=== PATIENT | female | born 1940 | race Caucasian/White ===

== ENCOUNTER → 2016-07-25 | Outpatient (CLI) | payer MEDICARE, BC | END | disposition home or self-care (01) | LOC: LABWHC1 10:30 | PROVIDERS: ATTEND Family Medicine | DX: R53.1 Weakness (principal); M79.602 Pain in left arm | CPT/HCPCS: 36415; 82565; 84520 ==

== ENCOUNTER → 2016-07-26 | Outpatient (CLI) | payer MEDICARE, BC ==
--- NOTE | 2016-07-26 10:33 | MR ---
EXAMINATION TYPE: MR Cspine/Tspine wo/w con DATE OF EXAM: 07/26/2016 8:44 AM COMPARISON: Cervical spine 10/02/2011 and thoracic spine dated 01/30/2012 HISTORY: 75-year-old female with back pain, weakness in arms and legs, left arm pain. TECHNIQUE: Multiplanar, multisequence images of the cervical spine followed by the thoracic spine bef ore and after administration of 17 mL intravenous MultiHance gadolinium contrast. FINDINGS: CERVICAL SPINE: No craniocervical junction abnormality, predental space widening, or prevertebral soft tissue swellin g. There are postsurgical changes of C3-C5 ACDF. Reversal of the normal cervical lordosis along the lowe r cervical spine. Alignment is maintained. Mild heterogeneous marrow signal without suspicious bone marrow replacement. Moderate multilevel degenerative disc disease characterized by disc desiccation and disc interspace n arrowing. The degree of disc space loss has regressed from 10/02/2011 especially at C2-C3. Ligamentum flavum thickening at C2-C3 and C3-C4 and continued prominent disc osteophyte complex at C7 -T1. Scattered facet degenerative changes also present. At C2-C3, there is worsening, now moderate spinal canal stenosis with disc osteophyte complex and lig amentum flavum thickening. Changes result in mild left and moderate right neuroforaminal stenosis. Th ere is prominent ventral indentation and dorsal abutment of the cervical cord. At C3-C4, there is posterior osteophytic ridging at the fused level with ligamentum flavum thickening and worsening moderate spinal canal stenosis. There is continued flattening of the ventral cord and prominent abutment of the dorsal cord with mild volume loss and some increased T2 signal especially w ithin the left hemicord. However, there is increased signal also appears to have been present on prio r exam and is suspected to relate to chronic compressive myelomalacia. Changes result in moderate blanca ateral neuroforaminal stenoses. At C4-C5, there is uncovertebral joint and facet spurring with moderate to severe right and moderate left neuroforaminal stenosis but no significant spinal canal stenosis. At C5-C6, there is uncovertebral joint and facet degenerative change without significant spinal canal or neuroforaminal stenosis. At C6-C7, there is reversal of the normal cervical lordosis causing mild impression on the ventral th ecal sac. There is also bilateral facet and uncovertebral joint degenerative change resulting in mode rate to severe left and [id number] right neuroforaminal stenosis. No significant spinal canal s tenosis. At C7-T1, there is disc osteophyte complex with facet and uncovertebral joint degenerative change. Ch anges result in moderate to severe left neuroforaminal stenosis with a prominent left lateral disc os teophyte complex. There is slight worsening mild spinal canal stenosis with abutment and slight ariana ening of the ventral cord. At C7-T1, there is facet degenerative change with moderate right neuroforaminal stenosis. No spinal c anal stenosis. No suspicious enhancement within the spinal canal. Multiple cystic nodules within the thyroid gland. Additional nodules are present measuring up to 2.0 cm in the right lobe versus 1.8 cm, previously. These can be assessed in more detail with thyroid ult rasound if indicated. THORACIC SPINE: There is straightening of the normal thoracic kyphosis with multilevel mild degenerative disc disease characterized by disc desiccation. Mild disc height loss at T8-T9. Multiple levels of posterior disc bulges. Ligamentum flavum thickening throughout. Also noted. Scattered facet arthropathy is also pre sent. On the left, changes of the moderate neuroforaminal stenosis at T9-T10 and T10-T11 and very minimal m ild additional levels. On the right, changes results in mild to moderate neuroforaminal stenosis at T8-T9 and T10-T11 and mo derate at T9-T10. There is no significant spinal canal stenosis. Minimal superior endplate depression of T5 is unchanged. Chronic-appearing anterior wedging of T12 th ough new from 2012. Mild heterogeneous marrow signal without suspicious bone marrow placement. Some Modic type II endplat e change is present anteriorly from T7 through T11 levels. New in the interval is posterior fusion hardware from T12 and down below the field of view. There is severe angulated kyphotic deformity at T11-T12 also new. The left T11 transpedicular screw appears to project superiorly into the T11-T12 disc interspace and T11 inferior endplate. The focal kyphosis is accompanied by a right paracentral disc protrusion at T11-T12 causing mild spinal canal stenosis and flattening the cord ventrally against the angulation deformity. No clear cord signal abnormality is identified. An ovoid 2.0 cm T2 hyperintense lesion in the anterior mid right kidney appears new from 2012. This e ither does not enhance or have some low-level internal enhancement. Moderate-sized hiatal hernia. Referring to series 1301 and 1601 image 20, there is focal subpleural opacity in the posterior right base. COMBINED IMPRESSION: CERVICAL SPINE: 1. Postsurgical changes of C3-C5 ACDF with interval worsening in the disc/endplate degenerative wren e and ligamentum flavum thickening above the fusion in the upper cervical spine. Multilevel facet and uncovertebral joint arthropathy remains. 2. Changes result in worsening moderate spinal canal stenosis at C2-C3 with abutment of both the dors al and ventral cord and slight ventral cord flattening. 3. Moderate spinal canal stenosis at the fused C3-C4 level is also worsened due to new ligamentum fla vum thickening. There is continued flattening of the ventral cord and now abutment of the dorsal cord with similar chronic compressive myelomalacia especially in the left hemicord. 4. Disc osteophyte complex at C7-T1 with slight worsening mild spinal canal stenosis. There is slight flattening of the ventral cord without lety cord compression. 5. Variable moderate to severe neuroforaminal stenoses as outlined above. 6. Bilateral thyroid nodules some of which appear larger from 2012. Dedicated thyroid ultrasound as c linically indicated. THORACIC SPINE: 1. New posterior fusion changes from T12 extending down beyond the [id number] and new angulated ky photic deformity centered at T11-T12. There is a right paracentral disc protrusion at this level caus ing mild spinal canal stenosis. The lower thoracic cord is flattened ventrally as it drapes over the angulation deformity. 2. The left T12 transpedicular screw extends into the T11-T12 disc interspace and into the T11 inferi or endplate. 3. Mild multilevel degenerative disc disease with small posterior disc bulges. Additional scattered f acet arthropathy and ligamentum flavum thickening. 4. Changes result in variable mild neuroforaminal stenoses throughout, moderate at T9-T10 and T10-T11 . 5. Recommend renal ultrasound to evaluate the new 2.0 cm hyperintense lesion in the right mid kidney. This may represent a cyst. 6. Focal subpleural opacity posterior right base. Contrast enhanced CT chest can further evaluate for possible consolidation or mass.
== END | disposition home or self-care (01) ==
LOC: RADMRIMAIN 07:18
PROVIDERS: ATTEND Family Medicine
DX: M48.02 Spinal stenosis, cervical region (principal); M99.71 Connective tissue and disc stenosis of intervertebral foramina of cervical region; M46.92 Unspecified inflammatory spondylopathy, cervical region; M48.04 Spinal stenosis, thoracic region; M99.72 Connective tissue and disc stenosis of intervertebral foramina of thoracic region; M51.24 Other intervertebral disc displacement, thoracic region; M51.34 Other intervertebral disc degeneration, thoracic region; M46.94 Unspecified inflammatory spondylopathy, thoracic region; Z98.1 Arthrodesis status
CPT/HCPCS: 72156; 72157; A9577

== ENCOUNTER → 2016-07-28 | Outpatient (CLI) | payer MEDICARE, BC ==
[2016-07-25 16:29] LABS: Blood Urea Nitrogen 26 mg/dL (7-17); Non-African American GFR(MDRD) >60 (>60 ml/min/1.73 sqM)
--- NOTE | 2016-07-28 16:53 | MR ---
EXAMINATION TYPE: MR lumbar spine wo/w con DATE OF EXAM: 07/28/2016 3:46 PM COMPARISON: 03/28/2011 HISTORY: 75-year-old female pain, weakness in legs Technique: Multiplanar, multisequence images of the lumbar spine were obtained before and after admin istration of 17 mL intravenous MultiHance gadolinium contrast. FINDINGS: There are extensive postsurgical changes extending from T12 down through S2 levels. As noted on recen t thoracic spine exam, the left T12 transpedicular screw extends up into the T11-T12 disc interspace and T11 inferior endplate. There is a marked kyphotic deformity at T11-T12, new from 03/28/2011 and pe rsistent grade 2 anterolisthesis at L2-L4 with a interbody ankylosis. There appears to be relatively similar grade 1 retrolisthesis at L4-L5 and postlaminectomy changes throughout most of the lumbar spi ne. As noted on prior thoracic spine exam, there is a right paracentral disc protrusion at T11-T12 and al jill with the angulation deformity, mild spinal canal stenosis with flattening of the cord as it drape s over the angulation deformity. At the fused L3-L4 level, there is the grade 2 retrolisthesis with a dorsal decompression of the spin al canal. No obvious spinal canal stenosis is seen aside from the T11-T12 level. Assessment of the neuroforamina is essentially nondiagnostic due to the degree of extensive metal art ifact. Numerous T2 hyperintense lesions within the kidneys. Renal ultrasound can further evaluate the 1.9 cm anterior right kidney ovoid lesion. IMPRESSION: 1. Extensive metal hardware artifact from T11 through S2 posterior lumbar fusion. Kyphotic angulation deformity at T11-T12 with canal narrowing and flattening of the cord as it courses over the angulati on deformity was described on the recent thoracic spine MRI. The angulation deformity and surgical padilla rdware is new from 2010. 2. Grade 2 retrolisthesis at L3-L4 with bony interbody ankylosis which was present previously. There is dorsal decompression of the spinal canal at this level preventing any canal compromise here. 3. Aside from the T11-T12 level, no significant spinal canal stenosis is identified with certainty al lowing for the extensive metal hardware artifact. 4. Assessment of the neuroforamina is essentially nondiagnostic due to the extensive artifact.
== END | disposition home or self-care (01) ==
LOC: LABWHC1 07-25 15:52
PROVIDERS: ATTEND Family Medicine
DX: Z98.1 Arthrodesis status (principal); M43.16 Spondylolisthesis, lumbar region
CPT/HCPCS: 82565; 84520; 72158; 36415; A9577

== ENCOUNTER → 2016-08-08 | Outpatient (CLI) | payer MEDICARE, BC ==
[2016-08-08 11:11] LABS: Blood Urea Nitrogen 33 mg/dL (7-17); Non-African American GFR(MDRD) >60 (>60 ml/min/1.73 sqM)
--- NOTE | 2016-08-08 11:53 | CT ---
EXAMINATION TYPE: CT chest w con DATE OF EXAM: 08/08/2016 11:44 AM COMPARISON: 03/11/2013 HISTORY: Abnormal findings of lung field CT DLP: 720 mGycm Automated exposure control for dose reduction was used. CONTRAST: CT scan of the chest is performed with IV Contrast, patient injected with 100 ml mL of Omnipaque 300. FINDINGS: LUNGS: There is no consolidative pneumonia or pleural effusion. There is a nodular appearing density along the posterior segment of the right lower lobe measuring 8 mm. Adjacent subpleural 5 mm nodule s een which appear increased in size from previous exam. MEDIASTINUM: There are no greater than 1 cm hilar or mediastinal lymph nodes. No pericardial effusi on is seen. Heart is enlarged. Subcarinal calcified lymph nodes are seen. OTHER: Stable thyroid nodules with thyroid gland extending substernally. 6 mm nodule right breast fo r which mammogram is recommended. Degenerative change of the spine and previous surgery noted. Spleni c granuloma noted. There is a prominent epicardial fat. Hiatal hernia noted. IMPRESSION: 1. No consolidative pneumonia. There is a nodule involving the right lower lobe now measuring 8 mm wh ich is increased in size from the previous exam where it measured 2 mm. Consider follow-up PET scan. 2. 6 mm right breast nodule recommend follow-up mammogram.
== END | disposition home or self-care (01) ==
LOC: RADCTMAIN 10:27
PROVIDERS: ATTEND Family Medicine
DX: R91.8 Other nonspecific abnormal finding of lung field (principal)
CPT/HCPCS: 82565; 84520; 71260; 36415; Q9967

== ENCOUNTER → 2016-08-25 | Outpatient (CLI) | payer MEDICARE, BC ==
--- NOTE | 2016-08-26 07:24 | MM ---
Reason for exam: additional evaluation requested from prior study. Last mammogram was performed 1 year and 5 months ago. History: Patient is postmenopausal. Family history of breast cancer in 2 paternal aunts at age 30. 2 excisional biopsies of the right breast, 1989. Physical Findings: Nurse did not find any significant physical abnormalities on exam. MG 3D Diag Mammo W/Cad JAMIL Bilateral CC and MLO view(s) were taken. LM view(s) were taken of the right breast. Prior study comparison: March 28, 2015, bilateral MG screening mammo w CAD. November 16, 2013, bilateral MG screening mammo w CAD. There are scattered fibroglandular densities. No significant new findings when compared with previous films. These results were verbally communicated with the patient and result sheet given to the patient on 08/25/16. ASSESSMENT: Benign, BI-RAD 2 RECOMMENDATION: Routine screening mammogram of both breasts in 1 year.
== END | disposition home or self-care (01) ==
LOC: RADMAMWWP 15:35
PROVIDERS: ATTEND Family Medicine
DX: N63 Unspecified lump in breast (principal)
CPT/HCPCS: G0204; G0279

== ENCOUNTER → 2016-10-22 | Outpatient (CLI) | payer MEDICARE, BC ==
[2016-10-22 11:12] LABS: Blood Urea Nitrogen 43 mg/dL (7-17); Non-African American GFR(MDRD) 60 (>60 ml/min/1.73 sqM)
--- NOTE | 2016-10-22 11:57 | CT ---
EXAMINATION TYPE: CT chest w con DATE OF EXAM: 10/22/2016 11:42 AM COMPARISON: Prior chest CT August 08, 2016. Older chest CT March 11, 2013. HISTORY: Chest nodules. COPD. CT DLP: 461.00 mGycm. Automated Exposure Control for Dose Reduction was Utilized. TECHNIQUE: CT scan of the thorax is performed following with IV Contrast, patient injected with 100 ml mL of Omnipaque 300. FINDINGS: Donor Relations Manager image shows extensive fusion hardware involving the lumbar spine and upper sacrum. LUNGS: There is improved aeration and nodular consolidation posterior lateral right lower lobe with s ome residual ill-defined scarring or infiltrate seen on axial image 37. No new parenchymal nodule or mass is present bilaterally. There is no pleural effusion or pneumothorax seen bilaterally. The tr acheobronchial tree is patent. MEDIASTINUM: There are no greater than 1 cm hilar or mediastinal lymph nodes. Prominent calcified rig ht hilar and subcarinal lymph nodes are redemonstrated. There are prominent but subcentimeter stable pericarinal lymph nodes on axial image 22 redemonstrated. Mild cardiomegaly is again seen with mild t o moderate biatrial dilatation. No pericardial effusion is seen. Multinodular enlarged thyroid gla nd is redemonstrated suggesting multinodular goiter. Some coronary artery calcification is redemonstr ated. OTHER: Prominent focal fibroglandular tissue right breast lateral aspect on axial image 22 is uncha nged from 2013 study and thus presumed benign. Small hiatal hernia is redemonstrated. Numerous calcif ications scattered throughout the spleen are again seen consistent with old granulomatous disease. Marked kyphosis centered at T11-T12 level is redemonstrated. There is postsurgical change beginning a t T12 level with left-sided screw extending into the inferior T11 vertebra. There is marked disc spac e narrowing and spurring at this level with sclerosis and vacuum disc phenomenon. There is vacuum dis c phenomenon at several levels superior to this. There is prominent spurring inferior to this. IMPRESSION: Interval near complete resolution of right lower lobe nodular infiltrate. No new concerni ng parenchymal nodule or mass is present. Other findings as noted above not significantly changed fro m prior exam.
== END | disposition home or self-care (01) ==
LOC: RADCTMAIN 10:20
PROVIDERS: ATTEND Family Medicine
DX: R91.8 Other nonspecific abnormal finding of lung field (principal); J44.9 Chronic obstructive pulmonary disease, unspecified
CPT/HCPCS: 82565; 84520; 71260; 36415; Q9967

== ENCOUNTER → 2017-10-02 | Outpatient (CLI) | payer MEDICARE, BC ==
--- NOTE | 2017-10-02 11:34 | XR ---
EXAMINATION TYPE: XR chest 2V DATE OF EXAM: 10/02/2017 COMPARISON: NONE HISTORY: Shortness of breath TECHNIQUE: Frontal and lateral views of the chest are obtained. FINDINGS: Scattered senescent parenchymal changes noted. Hyperinflation compatible with COPD. No evidence for infiltrate. No evidence for atelectasis. Heart size is stable. Mediastinal structures are stable and grossly unremarkable. No evidence for hilar prominence. Degenerative changes dorsal spine. Postoperative changes with exaggerated kyphosis thoracolumbar spin e. IMPRESSION: 1. No evidence for acute pulmonary disease.
== END | disposition home or self-care (01) ==
LOC: RADXRMAIN 11:01
PROVIDERS: ATTEND Internal Medicine Clinical Cardiac Electrophysiology
DX: J09.X2 Influenza due to identified novel influenza A virus with other respiratory manifestations (principal)
CPT/HCPCS: 71046

== ENCOUNTER 2017-10-05 05:53 | Day surgery (SDC) | payer MEDICARE, BC ==
[2017-09-30 14:37] VITALS: BMI 38.9
[~2017-10-05 05:53] MED LIST: LACTATED RINGERS 1,000 ML IV SCH
[2017-10-05] MEDS ORDERED: SODIUM CHLORIDE 0.9% 1,000 ML IV SCH (06:06)
[2017-10-05 06:47] VITALS: PULSE 68
[2017-10-05] MEDS ORDERED: IV FLUID CONTINUATION 950 ML IV ONE (07:08)
[2017-10-05] MEDS ORDERED: PROPOFOL 10 MG/ML 20 ML VIAL IV ONE (07:10)
[2017-10-05] MEDS ORDERED: LIDOCAINE 1% INJ 10MG/ML (20 ML MDV) ONE (07:10)
[2017-10-05 07:18] LABS: Potassium 3.5 mmol/L (3.5-5.1)
--- NOTE | 2017-10-05 07:37 | P.PCN ---
Preoperative Diagnosis: Procedure Electrical cardioversion for atrial fibrillation Indication for the procedure Symptomatic, rate controlled atrial fibrillation, patient very short of breath with average activities despite adequate rate control of atrial fibrillation. Underlying sick sinus syndrome exacerbated by a combination of metoprolol and verapamil in the past; hence verapamil was discontinued Procedure details Successful electrical cardioversion with a 360 J biphasic shock 1 to sinus rhythm no significant postconversion pauses patient's heart rate ranged from 60- 80 in sinus rhythm Plan Start amiodarone 200 mg by mouth daily Reduce metoprolol to 25 mg twice daily Follow-up Holter monitor in 4 weeks Follow-up with Dr. Sanchez in 6 weeks In the long run reduce amiodarone to 100 mg by mouth daily after about 6 weeks However she is very symptomatic with atrial fibrillation despite good rate control and hence maintenance of sinus rhythm is probably important for her from a symptomatic standpoint Would favor a rhythm control strategy with PVI/cryoablation before permanent pacing/AV node ablation Anesthesia: MAC Disposition: same day
[2017-10-05 10:49] VITALS: BP 142/77; RESP 18
== END 2017-10-05 10:49 | disposition home or self-care (01) ==
LOC: CATHEP 05:53
PROVIDERS: ATTEND Internal Medicine Clinical Cardiac Electrophysiology
DX: I48.1 Persistent atrial fibrillation (principal); Z79.01 Long term (current) use of anticoagulants; I49.5 Sick sinus syndrome; I44.0 Atrioventricular block, first degree; I10 Essential (primary) hypertension; E78.5 Hyperlipidemia, unspecified; M10.9 Gout, unspecified; K27.9 Peptic ulcer, site unspecified, unspecified as acute or chronic, without hemorrhage or perforation; Z79.51 Long term (current) use of inhaled steroids; Z79.899 Other long term (current) drug therapy; Z88.7 Allergy status to serum and vaccine
CPT/HCPCS: 80048; 92960

== ENCOUNTER → 2017-12-03 | Outpatient (CLI) | payer MEDICARE, BC ==
[2017-12-03 11:35] LABS: Calcium 9.4 mg/dL (8.4-10.2); Magnesium 1.6 mg/dL (1.6-2.3); Potassium 3.1 mmol/L (3.5-5.1)
== END | disposition home or self-care (01) ==
LOC: LABWHC1 10:34
PROVIDERS: ATTEND Nurse Practitioner Adult Health
DX: I10 Essential (primary) hypertension (principal)
CPT/HCPCS: 36415; 80048; 83735

== ENCOUNTER → 2018-02-26 | Outpatient (CLI) | payer MEDICARE, BC ==
--- NOTE | 2018-02-28 22:27 | CT ---
EXAMINATION TYPE: CT abdomen pelvis w con DATE OF EXAM: 02/26/2018 HISTORY: Right upper quadrant abdominal pain and nausea. CT DLP: 1141.8mGycm Automated Exposure Control for Dose Reduction was Utilized. CONTRAST: CT scan of the abdomen and pelvis is performed with oral and with IV Contrast, patient injected with 100ml mL of Isovue M300. COMPARISON: Prior CT abdomen and pelvis February 22, 2015. FINDINGS: LUNG BASES: Cardiomegaly is redemonstrated. Dense calcification at level of mitral valve is again see n. LIVER/GB: Cholecystectomy clips are redemonstrated. Occasional punctate calcification throughout the liver is again seen. PANCREAS: There is redemonstration of mild to moderate focal atrophy of the pancreas near uncinate pr ocess, there is new thin-walled 1.0 cm lesion just anterior to IVC axial image 26 favoring a pancreat ic pseudocyst. SPLEEN: There are more numerous calcifications throughout the spleen redemonstrated. Liver and spleen findings are consistent with product of old granulomatous disease. ADRENALS: No significant abnormality is seen. KIDNEYS: There are symmetric cortical medullary uptake and excretion from both kidneys with 2 subcent imeter low dense lesions scattered throughout left kidney and single nonspecific hypodense 1.9 cm les ion right kidney axial image 22. Hounsfield units are greater than simple fluid. Solid lesion at this level cannot be excluded. This is correlated with MRI July 28, 2016 and appear stable favoring si mple cyst. BOWEL: The oral contrast reaches level of the hepatic flexure. There is no suspicious small or large bowel dilatation. There are diverticula in the sigmoid colon without CT evidence for acute diverticu litis. UTERUS/ADNEXA: Uterus is surgically absent or markedly atrophic. Scattered pelvic phlebolith are pres ent. LYMPH NODES: No greater than 1cm abdominal or pelvic lymph nodes are appreciated. OSSEOUS STRUCTURES: Extensive surgical change to the lumbar spine is redemonstrated. Demineralization is present. There is multilevel disc space narrowing and ossific fusion. There is moderate height lo ss anteriorly involving the T11 and T12 vertebra at peak of kyphosis redemonstrated. There is stable retrolisthesis of L2 on L3 with ossific fusion. Moderate joint space loss both hips is redemonstrated . OTHER: No significant additional abnormality is seen. IMPRESSION: No significant acute finding is seen to account for patient's clinical symptoms of right upper quadrant pain. Possible new 1.0 cm pancreatic pseudocyst near level of uncinate process.
== END | disposition home or self-care (01) ==
LOC: RADCTMAIN 15:35
PROVIDERS: ATTEND Family Medicine
DX: R10.11 Right upper quadrant pain (principal)
CPT/HCPCS: 82565; 84520; 74177; 36415; Q9967

== ENCOUNTER → 2018-06-08 | Outpatient (CLI) | payer MEDICARE, BC ==
--- NOTE | 2018-06-08 17:38 | CT ---
EXAMINATION: CT brain wo con DATE AND TIME: 06/08/2018 5:00 PM CLINICAL INDICATION: R42 dizziness R51 headaches JUARES x3 days TECHNIQUE: Standard departmental protocol. COMPARISON: None. FINDINGS: The calvarium is intact. There is no intracranial hemorrhage. There is no intracranial mass or mass effect. No definite new intra-axial or extra-axial attenuation defect. The paranasal sinuses, middle ear cavities, and mastoid sinus air cells are clear. The orbits are unremarkable. IMPRESSION: NO ACUTE PROCESS.
== END | disposition home or self-care (01) ==
LOC: RADCTMAIN 16:38
PROVIDERS: ATTEND Family Medicine
DX: R42 Dizziness and giddiness (principal); R51 Headache
CPT/HCPCS: 70450

== ENCOUNTER 2019-02-21 15:18 | Inpatient (IN) | payer MEDICARE, BC ==
--- NOTE | 2019-02-21 18:06 | ED ---
Weakness HPI - General Source: patient, family Mode of arrival: wheelchair Limitations: no limitations <Anupama Palomino - Last Filed: 02/24/19 00:52> <Bharat Cuellar - Last Filed: 02/28/19 04:14> - General Chief complaint: Weakness Stated complaint: trouble walking Time Seen by Provider: 02/21/19 17:13 - History of Present Illness Initial comments: Patient is a 78-year-old female presenting to emergency department complaints of weakness 1-2 weeks. Patient states she feels like her legs are just not able to keep up with that she wants to do. Patient admits to traveling by vehicle to [place] 2 weeks ago when her symptoms started. Patient returned approximately 4 days ago and symptoms have just progressed. Patient admits to having bilateral lower leg edema. Patient denies any fever, chills, shortness of breath, nausea, vomiting, diarrhea. No other complaints at this time. Patient has past medical history of DM, COPD, hypertension, hyperlipidemia. (Anupama Palomino) - Related Data Home Medications Medication Instructions Recorded Confirmed DULoxetine HCL [Cymbalta] 60 mg PO DAILY 02/21/15 02/21/19 Ergocalciferol (Vitamin D2) 50,000 unit PO TU 02/21/15 02/21/19 [Vitamin D2] Magnesium Oxide [Mag-Ox] 400 mg PO 02/21/15 02/21/19 Mirabegron [Myrbetriq] 50 mg PO DAILY PRN 02/21/15 02/21/19 Montelukast [Singulair] 10 mg PO DAILY 02/21/15 02/21/19 Omeprazole 40 mg PO DAILY 02/21/15 02/21/19 Apixaban [Eliquis] 5 mg PO BID 09/30/17 02/21/19 Docusate [Colace] 100 mg PO DAILY 09/30/17 02/21/19 Ranitidine HCl [Zantac] 150 mg PO HS 09/30/17 02/21/19 Albuterol Inhaler [Ventolin Hfa 2 puff INHALATION RT-Q6H PRN 02/21/19 02/21/19 Inhaler] Allopurinol [Zyloprim] 300 mg PO HS 02/21/19 02/21/19 Colon Health 1 tab PO DAILY 02/21/19 02/21/19 Cyanocobalamin (Vitamin B-12) 1,000 mcg PO DAILY 02/21/19 02/21/19 [Vitamin B-12] Furosemide [Lasix] 40 mg PO DAILY 02/21/19 02/21/19 Loratadine [Claritin] 10 mg PO DAILY 02/21/19 02/21/19 metFORMIN HCL [Glucophage] 500 mg PO DAILY 02/21/19 02/21/19 predniSONE 10 mg PO TID 02/21/19 02/21/19 traMADol HCL [Ultram] 50 mg PO DAILY PRN 02/21/19 02/21/19 traZODone HCL 50 mg PO HS 02/21/19 02/21/19 Previous Rx's Medication Instructions Recorded Amiodarone [Cordarone] 200 mg PO DAILY #90 tab 10/05/17 Allergies Allergy/AdvReac Type Severity Reaction Status Date / Time adhesive AdvReac blisters Verified 02/21/19 17:09 tetanus toxoid, adsorbed AdvReac RED SKIN Verified 02/21/19 17:09 AND SWELLING AT SITE Review of Systems ROS Other: All systems not noted in ROS Statement are negative. <Anupama Palomino - Last Filed: 02/24/19 00:52> ROS Other: All systems not noted in ROS Statement are negative. <Bharat Cuellar - Last Filed: 02/28/19 04:14> ROS Statement: Those systems with pertinent positive or pertinent negative responses have been documented in the HPI. Past Medical History Past Medical History: Asthma, COPD, GERD/Reflux, Hyperlipidemia, Hypertension, Osteoarthritis (OA) Additional Past Medical History / Comment(s): HX KIDNEY STONES, MIGRAINE HEADACHES,URINARY INCONTINENCE See Dr Montanez's H&P for cardiac history. lg cell arthritis- steriod treatment History of Any Multi-Drug Resistant Organisms: None Reported Past Surgical History: Appendectomy, Back Surgery, Bladder Surgery, Breast Surgery, Cholecystectomy, Hysterectomy, Orthopedic Surgery Additional Past Surgical History / Comment(s): RT BREAST BX, NECK SURGERY X2, HEMMORRHIDECTOMY,. COLONSCOPY. BILAT. CATARACTS. BLADDER SUSPENSION. BILAT CTR. 10 vertebrae "surgical placed" Past Anesthesia/Blood Transfusion Reactions: No Reported Reaction Past Psychological History: Anxiety, Depression Smoking Status: Never smoker Past Alcohol Use History: None Reported Past Drug Use History: None Reported - Past Family History Sister(s) Family Medical History: Cancer <Nicolle Palominonimaritza Garza - Last Filed: 02/24/19 00:52> General Exam Limitations: no limitations <GeorgetteAnupama Kayla - Last Filed: 02/24/19 00:52> - General Exam Comments Initial Comments: GENERAL: Well-appearing, well-nourished and in no acute distress. HEAD: Atraumatic, normocephalic. EYES: Pupils equal round and reactive to light, extraocular movements intact, sclera anicteric, conjunctiva are normal. ENT: TMs normal, nares patent, oropharynx clear without exudates. Moist mucous membranes. NECK: Normal range of motion, supple without lymphadenopathy or JVD. LUNGS: Breath sounds clear to auscultation bilaterally and equal. No wheezes rales or rhonchi. HEART: Regular rate and rhythm without murmurs, rubs or gallops. ABDOMEN: Soft, nontender, normoactive bowel sounds. No guarding, no rebound. No masses appreciated. : Deferred EXTREMITIES: Normal range of motion. No clubbing or cyanosis. Patient has 1+ pitting edema bilateral lower extremities. No pain to palpation of the calfs, no erythema to lower extremity. NEUROLOGICAL: Cranial nerves II through XII grossly intact. Normal speech, normal gait. PSYCH: Normal mood, normal affect. SKIN: Warm, Dry, normal turgor, no rashes or lesions noted. (Anupama Palomino) Course Vital Signs 02/21/19 02/21/19 02/21/19 15:23 21:50 23:07 Temperature 97.9 F Pulse Rate 96 86 85 Respiratory 18 16 16 Rate Blood Pressure 143/82 122/73 134/73 O2 Sat by Pulse 96 96 96 Oximetry EKG Findings - EKG Comments: EKG Findings:: Ventricular rate 89, IA interval 188, QTC 472. Sinus rhythm, occasional PVC. No acute ST segment changes. No prior EKGs to compare. <Anupama Palomino - Last Filed: 02/24/19 00:52> Medical Decision Making - Lab Data Result diagrams: 02/23/19 08:06 02/23/19 08:06 <Anupama Palomino - Last Filed: 02/24/19 00:52> - Lab Data Result diagrams: 02/25/19 07:05 02/25/19 07:05 <Bharat Cuellar - Last Filed: 02/28/19 04:14> - Medical Decision Making Patient is a 78-year-old female with complaints of weakness and lower extremity edema 1-2 weeks. Patient does admit to traveling by vehicle to [place] 2 weeks ago and returned approximately 4 days ago. Patient has history of DM, COPD, hypertension. Upon arrival, vital signs are stable, afebrile. Exam is unremarkable except for mild, 1+ edema around bilateral ankles. No pain with calf tenderness, no erythema lower extremities. CBC is within normal limits. CMP shows BUN of 40, creatinine of 0.94. Glucose is 288. Lactic acid 1.7. UA shows 4+ glucose, 22 WBCs. Urine will be cultured. Bilateral lower extremity ultrasounds were ordered. Patient's care was transferred to Dr. Cuellar at this time. (Anupama Palomino) I saw this patient in conjunction with the physician certified first assistant. I performed independent history and physical exam. Agree with case management. (Bharat Cuellar) - Lab Data Lab Results 02/21/19 02/21/19 02/21/19 Range/Units 17:17 17:17 17:27 WBC 8.0 (3.8-10.6) k/uL RBC 3.69 L (3.80-5.40) m/uL Hgb 12.0 (11.4-16.0) gm/dL Hct 36.4 (34.0-46.0) % MCV 98.5 (80.0-100.0) fL MCH 32.6 (25.0-35.0) pg MCHC 33.1 (31.0-37.0) g/dL RDW 16.4 H (11.5-15.5) % Plt Count 121 L (150-450) k/uL Neutrophils % 92 % Lymphocytes % 4 % Monocytes % 2 % Eosinophils % 1 % Basophils % 0 % Neutrophils # 7.3 (1.3-7.7) k/uL Lymphocytes # 0.3 L (1.0-4.8) k/uL Monocytes # 0.2 (0-1.0) k/uL Eosinophils # 0.1 (0-0.7) k/uL Basophils # 0.0 (0-0.2) k/uL Anisocytosis Slight Macrocytosis Slight ESR 14 (0-20) mm/hr PT (9.0-12.0) sec INR (<1.2) APTT (22.0-30.0) sec Sodium (137-145) mmol/L Potassium (3.5-5.1) mmol/L Chloride (98-107) mmol/L Carbon Dioxide (22-30) mmol/L Anion Gap mmol/L BUN (7-17) mg/dL Creatinine (0.52-1.04) mg/dL Est GFR (CKD-EPI)AfAm (>60 ml/min/1.73 sqM) Est GFR (CKD-EPI)NonAf (>60 ml/min/1.73 sqM) Glucose (74-99) mg/dL POC Glucose (mg/dL) (75-99) mg/dL POC Glu Clinical Engineering Manager ID Estimated Ave Glu mg/dL 209 Hemoglobin A1c 8.9 H (4.0-6.0) % Plasma Lactic Acid Chavo (0.7-2.0) mmol/L Calcium (8.4-10.2) mg/dL Total Bilirubin (0.2-1.3) mg/dL AST (14-36) U/L ALT (9-52) U/L Alkaline Phosphatase (38-126) U/L CK-MB (CK-2) (0.0-2.4) ng/mL NT-Pro-B Natriuret Pep pg/mL Total Protein (6.3-8.2) g/dL Albumin (3.5-5.0) g/dL Vitamin B12 (211-911) pg/mL Folate ng/mL Urine Color Urine Appearance (Clear) Urine pH (5.0-8.0) Ur Specific Knox (1.001-1.035) Urine Protein (Negative) Urine Glucose (UA) (Negative) Urine Ketones (Negative) Urine Blood (Negative) Urine Nitrite (Negative) Urine Bilirubin (Negative) Urine Urobilinogen (<2.0) mg/dL Ur Leukocyte Esterase (Negative) Urine RBC (0-5) /hpf Urine WBC (0-5) /hpf Ur Squamous Epith Cells (0-4) /hpf Hyaline Casts (0-2) /lpf Urine Mucus (None) /hpf 02/21/19 02/21/19 02/21/19 Range/Units 17:27 17:27 17:27 WBC (3.8-10.6) k/uL RBC (3.80-5.40) m/uL Hgb (11.4-16.0) gm/dL Hct (34.0-46.0) % MCV (80.0-100.0) fL MCH (25.0-35.0) pg MCHC (31.0-37.0) g/dL RDW (11.5-15.5) % Plt Count (150-450) k/uL Neutrophils % % Lymphocytes % % Monocytes % % Eosinophils % % Basophils % % Neutrophils # (1.3-7.7) k/uL Lymphocytes # (1.0-4.8) k/uL Monocytes # (0-1.0) k/uL Eosinophils # (0-0.7) k/uL Basophils # (0-0.2) k/uL Anisocytosis Macrocytosis ESR (0-20) mm/hr PT 10.1 (9.0-12.0) sec INR 0.9 (<1.2) APTT 19.3 L (22.0-30.0) sec Sodium 137 (137-145) mmol/L Potassium 3.7 (3.5-5.1) mmol/L Chloride 100 (98-107) mmol/L Carbon Dioxide 31 H (22-30) mmol/L Anion Gap 6 mmol/L BUN 40 H (7-17) mg/dL Creatinine 0.94 (0.52-1.04) mg/dL Est GFR (CKD-EPI)AfAm 66 (>60 ml/min/1.73 sqM) Est GFR (CKD-EPI)NonAf 58 (>60 ml/min/1.73 sqM) Glucose 288 H (74-99) mg/dL POC Glucose (mg/dL) (75-99) mg/dL POC Glu Clinical Engineering Manager ID Estimated Ave Glu mg/dL Hemoglobin A1c (4.0-6.0) % Plasma Lactic Acid Chavo 1.7 (0.7-2.0) mmol/L Calcium 8.7 (8.4-10.2) mg/dL Total Bilirubin 0.9 (0.2-1.3) mg/dL AST 23 (14-36) U/L ALT 65 H (9-52) U/L Alkaline Phosphatase 87 (38-126) U/L CK-MB (CK-2) (0.0-2.4) ng/mL NT-Pro-B Natriuret Pep pg/mL Total Protein 5.6 L (6.3-8.2) g/dL Albumin 3.3 L (3.5-5.0) g/dL Vitamin B12 (211-911) pg/mL Folate ng/mL Urine Color Urine Appearance (Clear) Urine pH (5.0-8.0) Ur Specific Knox (1.001-1.035) Urine Protein (Negative) Urine Glucose (UA) (Negative) Urine Ketones (Negative) Urine Blood (Negative) Urine Nitrite (Negative) Urine Bilirubin (Negative) Urine Urobilinogen (<2.0) mg/dL Ur Leukocyte Esterase (Negative) Urine RBC (0-5) /hpf Urine WBC (0-5) /hpf Ur Squamous Epith Cells (0-4) /hpf Hyaline Casts (0-2) /lpf Urine Mucus (None) /hpf 02/21/19 02/21/19 02/22/19 Range/Units 17:27 23:42 01:57 WBC (3.8-10.6) k/uL RBC (3.80-5.40) m/uL Hgb (11.4-16.0) gm/dL Hct (34.0-46.0) % MCV (80.0-100.0) fL MCH (25.0-35.0) pg MCHC (31.0-37.0) g/dL RDW (11.5-15.5) % Plt Count (150-450) k/uL Neutrophils % % Lymphocytes % % Monocytes % % Eosinophils % % Basophils % % Neutrophils # (1.3-7.7) k/uL Lymphocytes # (1.0-4.8) k/uL Monocytes # (0-1.0) k/uL Eosinophils # (0-0.7) k/uL Basophils # (0-0.2) k/uL Anisocytosis Macrocytosis ESR (0-20) mm/hr PT (9.0-12.0) sec INR (<1.2) APTT (22.0-30.0) sec Sodium (137-145) mmol/L Potassium (3.5-5.1) mmol/L Chloride (98-107) mmol/L Carbon Dioxide (22-30) mmol/L Anion Gap mmol/L BUN (7-17) mg/dL Creatinine (0.52-1.04) mg/dL Est GFR (CKD-EPI)AfAm (>60 ml/min/1.73 sqM) Est GFR (CKD-EPI)NonAf (>60 ml/min/1.73 sqM) Glucose (74-99) mg/dL POC Glucose (mg/dL) 233 H 231 H (75-99) mg/dL POC Glu Clinical Engineering Manager ID Maverick, Diane Maverick, Diane [address]imated [address] Glu mg/dL Hemoglobin A1c (4.0-6.0) % Plasma Lactic Acid Chavo (0.7-2.0) mmol/L Calcium (8.4-10.2) mg/dL Total Bilirubin (0.2-1.3) mg/dL AST (14-36) U/L ALT (9-52) U/L Alkaline Phosphatase (38-126) U/L CK-MB (CK-2) (0.0-2.4) ng/mL NT-Pro-B Natriuret Pep pg/mL Total Protein (6.3-8.2) g/dL Albumin (3.5-5.0) g/dL Vitamin B12 (211-911) pg/mL Folate ng/mL Urine Color Yellow Urine Appearance Clear (Clear) Urine pH 5.5 (5.0-8.0) Ur Specific Knox 1.028 (1.001-1.035) Urine Protein 1+ H (Negative) Urine Glucose (UA) 4+ H (Negative) Urine Ketones Negative (Negative) Urine Blood Negative (Negative) Urine Nitrite Negative (Negative) Urine Bilirubin Negative (Negative) Urine Urobilinogen 3.0 (<2.0) mg/dL Ur Leukocyte Esterase Small H (Negative) Urine RBC 2 (0-5) /hpf Urine WBC 22 H (0-5) /hpf Ur Squamous Epith Cells 4 (0-4) /hpf Hyaline Casts 1 (0-2) /lpf Urine Mucus Rare H (None) /hpf 08/13/19 08/13/19 08/13/19 Range/Units 07:24 11:46 13:51 WBC (3.8-10.6) k/uL RBC (3.80-5.40) m/uL Hgb (11.4-16.0) gm/dL Hct (34.0-46.0) % MCV (80.0-100.0) fL MCH (25.0-35.0) pg MCHC (31.0-37.0) g/dL RDW (11.5-15.5) % Plt Count (150-450) k/uL Neutrophils % % Lymphocytes % % Monocytes % % Eosinophils % % Basophils % % Neutrophils # (1.3-7.7) k/uL Lymphocytes # (1.0-4.8) k/uL Monocytes # (0-1.0) k/uL Eosinophils # (0-0.7) k/uL Basophils # (0-0.2) k/uL Anisocytosis Macrocytosis ESR (0-20) mm/hr PT (9.0-12.0) sec INR (<1.2) APTT (22.0-30.0) sec Sodium (137-145) mmol/L Potassium (3.5-5.1) mmol/L Chloride (98-107) mmol/L Carbon Dioxide (22-30) mmol/L Anion Gap mmol/L BUN (7-17) mg/dL Creatinine (0.52-1.04) mg/dL Est GFR (CKD-EPI)AfAm (>60 ml/min/1.73 sqM) Est GFR (CKD-EPI)NonAf (>60 ml/min/1.73 sqM) Glucose (74-99) mg/dL POC Glucose (mg/dL) 178 H 152 H (75-99) mg/dL POC Glu Clinical Engineering Manager ID Elise, Carlotta Elise, Carlotta [address] Glu mg/dL Hemoglobin A1c (4.0-6.0) % Plasma Lactic Acid Chavo (0.7-2.0) mmol/L Calcium (8.4-10.2) mg/dL Total Bilirubin (0.2-1.3) mg/dL AST (14-36) U/L ALT (9-52) U/L Alkaline Phosphatase (38-126) U/L CK-MB (CK-2) (0.0-2.4) ng/mL NT-Pro-B Natriuret Pep 1240 pg/mL Total Protein (6.3-8.2) g/dL Albumin (3.5-5.0) g/dL Vitamin B12 (211-911) pg/mL Folate ng/mL Urine Color Urine Appearance (Clear) Urine pH (5.0-8.0) Ur Specific Knox (1.001-1.035) Urine Protein (Negative) Urine Glucose (UA) (Negative) Urine Ketones (Negative) Urine Blood (Negative) Urine Nitrite (Negative) Urine Bilirubin (Negative) Urine Urobilinogen (<2.0) mg/dL Ur Leukocyte Esterase (Negative) Urine RBC (0-5) /hpf Urine WBC (0-5) /hpf Ur Squamous Epith Cells (0-4) /hpf Hyaline Casts (0-2) /lpf Urine Mucus (None) /hpf 02/22/19 02/22/19 02/22/19 Range/Units 13:51 13:51 17:02 WBC (3.8-10.6) k/uL RBC (3.80-5.40) m/uL Hgb (11.4-16.0) gm/dL Hct (34.0-46.0) % MCV (80.0-100.0) fL MCH (25.0-35.0) pg MCHC (31.0-37.0) g/dL RDW (11.5-15.5) % Plt Count (150-450) k/uL Neutrophils % % Lymphocytes % % Monocytes % % Eosinophils % % Basophils % % Neutrophils # (1.3-7.7) k/uL Lymphocytes # (1.0-4.8) k/uL Monocytes # (0-1.0) k/uL Eosinophils # (0-0.7) k/uL Basophils # (0-0.2) k/uL Anisocytosis Macrocytosis ESR (0-20) mm/hr PT (9.0-12.0) sec INR (<1.2) APTT (22.0-30.0) sec Sodium (137-145) mmol/L Potassium (3.5-5.1) mmol/L Chloride (98-107) mmol/L Carbon Dioxide (22-30) mmol/L Anion Gap mmol/L BUN (7-17) mg/dL Creatinine (0.52-1.04) mg/dL Est GFR (CKD-EPI)AfAm (>60 ml/min/1.73 sqM) Est GFR (CKD-EPI)NonAf (>60 ml/min/1.73 sqM) Glucose (74-99) mg/dL POC Glucose (mg/dL) 235 H (75-99) mg/dL POC Glu Clinical Engineering Manager ID Carlotta Olivares [address] Glu mg/dL Hemoglobin A1c (4.0-6.0) % Plasma Lactic Acid Chavo (0.7-2.0) mmol/L Calcium (8.4-10.2) mg/dL Total Bilirubin (0.2-1.3) mg/dL AST (14-36) U/L ALT (9-52) U/L Alkaline Phosphatase (38-126) U/L CK-MB (CK-2) 2.9 H (0.0-2.4) ng/mL NT-Pro-B Natriuret Pep pg/mL Total Protein (6.3-8.2) g/dL Albumin (3.5-5.0) g/dL Vitamin B12 >4000.0 H (211-911) pg/mL Folate 23.3 ng/mL Urine Color Urine Appearance (Clear) Urine pH (5.0-8.0) Ur Specific Knox (1.001-1.035) Urine Protein (Negative) Urine Glucose (UA) (Negative) Urine Ketones (Negative) Urine Blood (Negative) Urine Nitrite (Negative) Urine Bilirubin (Negative) Urine Urobilinogen (<2.0) mg/dL Ur Leukocyte Esterase (Negative) Urine RBC (0-5) /hpf Urine WBC (0-5) /hpf Ur Squamous Epith Cells (0-4) /hpf Hyaline Casts (0-2) /lpf Urine Mucus (None) /hpf 02/22/19 02/23/19 Range/Units 20:57 06:50 WBC (3.8-10.6) k/uL RBC (3.80-5.40) m/uL Hgb (11.4-16.0) gm/dL Hct (34.0-46.0) % MCV (80.0-100.0) fL MCH (25.0-35.0) pg MCHC (31.0-37.0) g/dL RDW (11.5-15.5) % Plt Count (150-450) k/uL Neutrophils % % Lymphocytes % % Monocytes % % Eosinophils % % Basophils % % Neutrophils # (1.3-7.7) k/uL Lymphocytes # (1.0-4.8) k/uL Monocytes # (0-1.0) k/uL Eosinophils # (0-0.7) k/uL Basophils # (0-0.2) k/uL Anisocytosis Macrocytosis ESR (0-20) mm/hr PT (9.0-12.0) sec INR (<1.2) APTT (22.0-30.0) sec Sodium (137-145) mmol/L Potassium (3.5-5.1) mmol/L Chloride (98-107) mmol/L Carbon Dioxide (22-30) mmol/L Anion Gap mmol/L BUN (7-17) mg/dL Creatinine (0.52-1.04) mg/dL Est GFR (CKD-EPI)AfAm (>60 ml/min/1.73 sqM) Est GFR (CKD-EPI)NonAf (>60 ml/min/1.73 sqM) Glucose (74-99) mg/dL POC Glucose (mg/dL) 330 H 209 H (75-99) mg/dL POC Glu Clinical Engineering Manager DAMON Mariano NegritaVerena Munroe [address] Glu mg/dL Hemoglobin A1c (4.0-6.0) % Plasma Lactic Acid Chavo (0.7-2.0) mmol/L Calcium (8.4-10.2) mg/dL Total Bilirubin (0.2-1.3) mg/dL AST (14-36) U/L ALT (9-52) U/L Alkaline Phosphatase (38-126) U/L CK-MB (CK-2) (0.0-2.4) ng/mL NT-Pro-B Natriuret Pep pg/mL Total Protein (6.3-8.2) g/dL Albumin (3.5-5.0) g/dL Vitamin B12 (211-911) pg/mL Folate ng/mL Urine Color Urine Appearance (Clear) Urine pH (5.0-8.0) Ur Specific Knox (1.001-1.035) Urine Protein (Negative) Urine Glucose (UA) (Negative) Urine Ketones (Negative) Urine Blood (Negative) Urine Nitrite (Negative) Urine Bilirubin (Negative) Urine Urobilinogen (<2.0) mg/dL Ur Leukocyte Esterase (Negative) Urine RBC (0-5) /hpf Urine WBC (0-5) /hpf Ur Squamous Epith Cells (0-4) /hpf Hyaline Casts (0-2) /lpf Urine Mucus (None) /hpf Disposition Is patient prescribed a controlled substance at d/c from ED?: No Decision Date: 02/21/19 Decision Time: 22:20 <Anupama Palomino - Last Filed: 02/24/19 00:52> <Bharat Cuellar - Last Filed: 02/28/19 04:14> Clinical Impression: Hyperglycemia, Weakness Disposition: ADMITTED IP TO THIS HOSP Condition: Stable
[2019-02-21] MEDS ORDERED: SODIUM CHLORIDE 0.9% 1,000 ML IV STA (18:07)
[2019-02-21 18:37] LABS: Anisocytosis Slight; Basophils % (A) 0 %; Eosinophils # (A) 0.1 k/uL (0-0.7); Eosinophils % (A) 1 %; HCT 36.4 % (34.0-46.0); Lymphocytes # (A) 0.3 k/uL (1.0-4.8); Lymphocytes % (A) 4 %; MCH 32.6 pg (25.0-35.0); MCHC 33.1 g/dL (31.0-37.0); MCV 98.5 fL (80.0-100.0); Macrocytosis Slight; Mean Platelet Volume 6.9; Monocytes # (A) 0.2 k/uL (0-1.0); Monocytes % (A) 2 %; Neutrophils # (A) 7.3 k/uL (1.3-7.7); Neutrophils % (A) 92 %; Platelet Count 121 k/uL (150-450); RBC 3.69 m/uL (3.80-5.40); RDW 16.4 % (11.5-15.5)
--- NOTE | 2019-02-21 18:40 | XR ---
EXAMINATION TYPE: XR chest 2V DATE OF EXAM: 02/21/2019 COMPARISON: 10/02/2017 HISTORY: Weakness TECHNIQUE: Frontal and lateral views of the chest are obtained. FINDINGS: There is no heart failure nor confluent pneumonic infiltrate. There is thoracolumbar kypho tic deformity with significant angulation at the lower thoracic spine. There is no pleural effusion. Heart size is normal. IMPRESSION: No active cardiopulmonary disease. No change. Thoracolumbar kyphotic deformity.
[2019-02-21 18:46] LABS: Albumin 3.3 g/dL (3.5-5.0); Appearance,Urine Clear (Clear); Bilirubin,Urine Negative (Negative); Blood,Urine Negative (Negative); Calcium 8.7 mg/dL (8.4-10.2); Color,Urine Yellow; Glucose,Urine (UA) 4+ (Negative); Hyaline Casts,Urine 1 /lpf (0-2); Ketones,Urine Negative (Negative); Leukocyte Esterase,Urine Small (Negative); Mucus,Urine Rare /hpf; Nitrite,Urine Negative (Negative); PH, Urine 5.5 (5.0-8.0); Potassium 3.7 mmol/L (3.5-5.1); Protein,Urine 1+ (Negative); RBC,Urine 2 /hpf (0-5); Specific Gravity,Urine 1.028 (1.001-1.035); Squamous Epithelial Cell,Urine 4 /hpf (0-4); Total Bilirubin 0.9 mg/dL (0.2-1.3); Total Protein 5.6 g/dL (6.3-8.2); WBC,Urine 22 /hpf (0-5)
[2019-02-21 18:52] LABS: INR 0.9 (<1.2); Prothrombin Time 10.1 sec (9.0-12.0)
[2019-02-21 18:59] LABS: Partial Thromboplastin Time 19.3 sec (22.0-30.0)
--- NOTE | 2019-02-21 21:46 | US ---
EXAMINATION TYPE: US venous doppler duplex LE DATE OF EXAM: 02/21/2019 9:36 PM COMPARISON: NONE CLINICAL HISTORY: swelling. Swelling bilateral legs x 2 months. No hx DVT. Pt on blood thinners, eliq uis. SIDE PERFORMED: Bilateral TECHNIQUE: The lower extremity deep venous system is examined utilizing real time linear array sonog vasquez with graded compression, doppler sonography and color-flow sonography. VESSELS IMAGED: External Iliac Vein (EIV) Common Femoral Vein Deep Femoral Vein Greater Saphenous Vein * Femoral Vein Popliteal Vein Proximal Calf Veins (* superficial vessels) Right Leg: No evidence of DVT from prox calf veins to EIV. Complex area seen medial knee measurin.2 x 2.6 x 1.2 cm. Dilated vessels seen near prox calf veins. These superficial vessels appear compr essible and show color flow. Left Leg: No evidence of DVT from prox calf veins to EIV. Complex area seen medial knee measurin .8 x 2.3 x 1.0 cm. IMPRESSION: No evidence of deep venous thrombosis in both legs. Bilateral popliteal cysts are present.
[2019-02-21] MEDS ORDERED: ACETAMINOPHEN TAB 325 MG TAB PO PRN (22:21)
[2019-02-21] MEDS ORDERED: NALOXONE 0.4 MG/ML 1 ML VIAL IV PRN (22:21)
[2019-02-21] MEDS ORDERED: traMADol 50 MG TAB PO PRN (22:22)
[2019-02-21] MEDS ORDERED: ALBUTEROL NEBULIZED 2.5 MG/3 ML INHALATION PRN (22:22)
[2019-02-21] MEDS ORDERED: Mirabegron [Myrbetriq] 50 MG PO PRN (22:22)
[2019-02-21] MEDS: SODIUM CHLORIDE 0.9% 1,000 ML IV SCH (23:01)
[2019-02-21 23:43] LABS: Glucose,Whole Blood 233 mg/dL (75-99)
[2019-02-22 01:59] LABS: Glucose,Whole Blood 231 mg/dL (75-99)
[2019-02-22] MEDS: INSULIN ASPART (NovoLOG) 100 UNIT/ML VIAL SQ SCH ×5 (02:02→21:10)
--- NOTE | 2019-02-22 02:41 | CT ---
EXAM: CT Head Without Intravenous Contrast CLINICAL HISTORY: ITS.REASON CT Reason: right sided weakness, hard time swallowing TECHNIQUE: Axial computed tomography images of the head/brain without intravenous contrast. CTDI is 57 mGy and DLP is 956 mGy-cm. This CT exam was performed using one or more of the following dose reduction techniques: automated exposure control, adjustment of the mA and/or kV according to patient size, and/or use of iterative reconstruction technique. COMPARISON: CT head 06/08/18 FINDINGS: Brain: No hemorrhage, large hypodensity, or mass effect. Ventricles: No hydrocephalus. Bones/joints: Unremarkable. Soft tissues: Unremarkable. Sinuses: Unremarkable. Mastoid air cells: Mild left mastoid effusion. IMPRESSION: No acute hemorrhage, hydrocephalus, or mass effect. Mild left mastoid effusion.
[2019-02-22 07:26] LABS: Glucose,Whole Blood 178 mg/dL (75-99)
[2019-02-22] MEDS: ERGOCALCIFEROL 50,000 UNIT CAP PO SCH (07:47)
[2019-02-22] MEDS: PANTOPRAZOLE 40 MG TABLET PO SCH (07:47)
[2019-02-22] MEDS: ALLOPURINOL 300 MG TAB PO SCH (07:47)
[2019-02-22] MEDS: AMIODARONE 200 MG TAB PO SCH (07:47)
[2019-02-22] MEDS: MONTELUKAST 10 MG TAB PO SCH (07:47)
[2019-02-22] MEDS: APIXABAN 5 MG TAB PO SCH ×2 (07:48→18:35)
[2019-02-22] MEDS: DULoxetine HCL 60 MG CAPSULE.DR PO SCH (07:48)
[2019-02-22] MEDS: FUROSEMIDE 40 MG TAB PO SCH (07:48)
[2019-02-22] MEDS: DOCUSATE 100 MG CAP PO SCH ×2 (07:48→21:10)
[2019-02-22] MEDS: metFORMIN 500 MG TAB PO SCH ×3 (07:48→21:17)
[2019-02-22] MEDS: CYANOCOBALAMIN 500 MCG TAB PO SCH (07:48)
[2019-02-22] MEDS ORDERED: NITROFURANTOIN MONOHYD/M-CRYST 100 MG CAP PO SCH (09:00)
[2019-02-22 11:47] LABS: Glucose,Whole Blood 152 mg/dL (75-99)
--- NOTE | 2019-02-22 12:07 | P.HPIM ---
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 Pt states she has had some degree of leg weakness at baseline for years and needed a lumbar surgery to decompress her nerve roots in the past. She recently went on a long car trip to [place] about 2 weeks ago and during that time began to experience significant leg swelling and progressive weakness. She states by the time she returned to [place] she was completely unable to walk and could only shuffle her legs. Pt states that she has also noticed facial swelling ever since starting treatment for temporal arteritis. She has been on 40 mg daily prednisone for approx 1 month now and total duration of steroid treatment approx 3 months. In the ED her vitals were stable, CXR and venous doppler negative, CT head negative for acute process. Currently she complains of severe weakness in bed unable to lift her legs against gravity. Review of Systems All systems: negative Constitutional: Reports fatigue, Reports lethargy, Reports weakness, Denies chills, Denies fever Eyes: right tunnel vision/blind spots, bilateral loss of peripheral vision, denies blurred vision, denies pain, denies loss of vision Ears, nose, mouth and throat: Denies headache, Denies sore throat Cardiovascular: Reports decreased exercise tolerance, Reports leg edema, Denies chest pain, Denies dyspnea on exertion, Denies orthopnea, Denies rapid heart beat, Denies shortness of breath Respiratory: Denies cough Gastrointestinal: Denies abdominal pain, Denies diarrhea, Denies nausea, Denies vomiting Genitourinary: Denies dysuria, Denies hematuria Musculoskeletal: Denies myalgias Integumentary: Denies pruritus, Denies rash Neurological: Denies numbness, Denies weakness Psychiatric: Denies anxiety, Denies depression Endocrine: Denies fatigue, Denies weight change Past Medical History Past Medical History: Atrial Fibrillation, Asthma, COPD, GERD/Reflux, Hyperlipidemia, Hypertension, Osteoarthritis (OA) Additional Past Medical History / Comment(s): HX KIDNEY STONES, MIGRAINE HEADACHES,URINARY INCONTINENCE See Dr Montanez's H&P for cardiac history. lg cell arthritis both eyes- steriod treatment, only on metformin because elevated blood sugars due to steroid treatment( December 18, 2018) not officially diagnosed with diabetes History of Any Multi-Drug Resistant Organisms: None Reported Past Surgical History: Appendectomy, Back Surgery, Bladder Surgery, Breast Surgery, Cholecystectomy, Hysterectomy, Orthopedic Surgery Additional Past Surgical History / Comment(s): RT BREAST BX, NECK SURGERY X2, HEMMORRHIDECTOMY,. COLONSCOPY. BILAT. CATARACTS. BLADDER SUSPENSION. BILAT CTR. 10 vertebrae "surgical placed". left artery removed left head. recently this month had hip cortizone injection Past Anesthesia/Blood Transfusion Reactions: No Reported Reaction Past Psychological History: Anxiety, Depression Smoking Status: Never smoker Past Alcohol Use History: None Reported Past Drug Use History: None Reported - Past Family History Sister(s) Family Medical History: Cancer Medications and Allergies Home Medications Medication Instructions Recorded Confirmed Type DULoxetine HCL [Cymbalta] 60 mg PO DAILY 02/21/15 02/21/19 History Ergocalciferol (Vitamin D2) 50,000 unit PO TU 02/21/15 02/21/19 History [Vitamin D2] Magnesium Oxide [Mag-Ox] 400 mg PO HS 02/21/15 02/21/19 History Mirabegron [Myrbetriq] 50 mg PO DAILY PRN 02/21/15 02/21/19 History Montelukast [Singulair] 10 mg PO DAILY 02/21/15 02/21/19 History Omeprazole 40 mg PO DAILY 02/21/15 02/21/19 History Apixaban [Eliquis] 5 mg PO BID 09/30/17 02/21/19 History Docusate [Colace] 100 mg PO DAILY 09/30/17 02/21/19 History Ranitidine HCl [Zantac] 150 mg PO HS 09/30/17 02/21/19 History Amiodarone [Cordarone] 200 mg PO DAILY #90 tab 10/05/17 02/21/19 Rx Albuterol Inhaler [Ventolin Hfa 2 puff INHALATION RT-Q6H PRN 02/21/19 02/21/19 History Inhaler] Allopurinol [Zyloprim] 300 mg PO HS 02/21/19 02/21/19 History Colon Health 1 tab PO DAILY 02/21/19 02/21/19 History Cyanocobalamin (Vitamin B-12) 1,000 mcg PO DAILY 02/21/19 02/21/19 History [Vitamin B-12] Furosemide [Lasix] 40 mg PO DAILY 02/21/19 02/21/19 History Loratadine [Claritin] 10 mg PO DAILY 02/21/19 02/21/19 History metFORMIN HCL [Glucophage] 500 mg PO DAILY 02/21/19 02/21/19 History predniSONE 10 mg PO TID 02/21/19 02/21/19 History traMADol HCL [Ultram] 50 mg PO DAILY PRN 02/21/19 02/21/19 History traZODone HCL 50 mg PO HS 02/21/19 02/21/19 History Allergies Allergy/AdvReac Type Severity Reaction Status Date / Time adhesive AdvReac blisters Verified 02/21/19 17:09 tetanus toxoid, adsorbed AdvReac RED SKIN Verified 02/21/19 17:09 AND SWELLING AT SITE Physical Exam Vitals: Vital Signs Temp Pulse Pulse Pulse Resp BP BP 02/22/19 06:01 97.9 F 85 16 110/70 02/22/19 00:15 98.0 F 89 16 133/69 02/21/19 23:07 85 16 134/73 02/21/19 21:50 86 16 122/73 02/21/19 15:23 97.9 F 96 18 143/82 Pulse Ox 02/22/19 06:01 96 02/22/19 00:15 93 L 02/21/19 23:07 96 02/21/19 21:50 96 02/21/19 15:23 96 Intake and Output 02/21/19 02/22/19 02/22/19 22:59 06:59 14:59 Intake Total 280 Balance 280 Intake: Intake, IV Titration 80 Amount Sodium Chloride 0.9% 1, 80 000 ml @ 20 mls/hr IV . Q24H [facility] Rx#:[id number] Oral 200 Other: Voiding Method Toilet # Voids 1 # Bowel Movements 1 Weight 85.275 kg General: well nourished, well developed. Weak and fatigued. Vitals reviewed Eyes: PERRL, EOMI, conjunctiva normal. Peripheral vision limited HENT: normocephalic, mucus membranes moist Neck: supple, no JVD Lungs: normal respiratory effort, no wheezes or rales CV: Regular rate and rhythm, no murmur. Peripheral pulses 2+ Abdomen: soft, nondistended, no organomegaly Extremities: 2+ edema bilateral LE. Str 3/5 bilateral LE to hip flexors. 4/5 to plantarflexion and dorsiflexion Skin: warm and dry. Neuro: A&Ox3, normal mood and affect. CN II-XII intact. Patellar reflexes absent Results CBC & Chem 7: 02/21/19 17:27 02/21/19 17:27 Labs: Abnormal Lab Results - Last 24 Hours (Table) 02/21/19 02/21/19 02/21/19 Range/Units 17:27 17:27 17:27 RBC 3.69 L (3.80-5.40) m/uL RDW 16.4 H (11.5-15.5) % Plt Count 121 L (150-450) k/uL Lymphocytes # 0.3 L (1.0-4.8) k/uL APTT 19.3 L (22.0-30.0) sec Carbon Dioxide 31 H (22-30) mmol/L BUN 40 H (7-17) mg/dL Glucose 288 H (74-99) mg/dL POC Glucose (mg/dL) (75-99) mg/dL ALT 65 H (9-52) U/L Total Protein 5.6 L (6.3-8.2) g/dL Albumin 3.3 L (3.5-5.0) g/dL Urine Protein (Negative) Urine Glucose (UA) (Negative) Ur Leukocyte Esterase (Negative) Urine WBC (0-5) /hpf Urine Mucus (None) /hpf 02/21/19 02/21/19 02/22/19 Range/Units 17:27 23:42 01:57 RBC (3.80-5.40) m/uL RDW (11.5-15.5) % Plt Count (150-450) k/uL Lymphocytes # (1.0-4.8) k/uL APTT (22.0-30.0) sec Carbon Dioxide (22-30) mmol/L BUN (7-17) mg/dL Glucose (74-99) mg/dL POC Glucose (mg/dL) 233 H 231 H (75-99) mg/dL ALT (9-52) U/L Total Protein (6.3-8.2) g/dL Albumin (3.5-5.0) g/dL Urine Protein 1+ H (Negative) Urine Glucose (UA) 4+ H (Negative) Ur Leukocyte Esterase Small H (Negative) Urine WBC 22 H (0-5) /hpf Urine Mucus Rare H (None) /hpf 02/22/19 02/22/19 Range/Units 07:24 11:46 RBC (3.80-5.40) m/uL RDW (11.5-15.5) % Plt Count (150-450) k/uL Lymphocytes # (1.0-4.8) k/uL APTT (22.0-30.0) sec Carbon Dioxide (22-30) mmol/L BUN (7-17) mg/dL Glucose (74-99) mg/dL POC Glucose (mg/dL) 178 H 152 H (75-99) mg/dL ALT (9-52) U/L Total Protein (6.3-8.2) g/dL Albumin (3.5-5.0) g/dL Urine Protein (Negative) Urine Glucose (UA) (Negative) Ur Leukocyte Esterase (Negative) Urine WBC (0-5) /hpf Urine Mucus (None) /hpf Microbiology - Last 24 Hours (Table) 02/21/19 17:27 Urine Culture - Preliminary Urine,Voided Thrombosis Risk Factor Assmnt - Choose All That Apply Any of the Below Risk Factors Present?: Yes Each Factor Represents 1 point: Abnormal pulmonary function (COPD), Obesity (BMI >25), Swollen legs (current) Other Risk Factors: Yes Each Risk Factor Represents 3 Points: Age 75 years or older Other congenital or acquired thrombophilia - If yes, enter type in comment: No Thrombosis Risk Factor Assessment Total Risk Factor Score: 6 Thrombosis Risk Factor Assessment Level: High Risk Assessment and Plan (1) Paresis of lower extremity Current Visit: Yes Status: Acute Code(s): G83.10 - MONOPLEGIA OF LOWER LIMB AFFECTING UNSPECIFIED SIDE SNOMED Code(s): 116934117 (2) Diastolic CHF Current Visit: Yes Status: Acute Code(s): I50.30 - UNSPECIFIED DIASTOLIC (CONGESTIVE) HEART FAILURE SNOMED Code(s): 075048638 (3) S/P lumbar fusion Current Visit: Yes Status: Acute Code(s): Z98.1 - ARTHRODESIS STATUS SNOMED Code(s): 46438393489510 (4) Bilateral edema of lower extremity Current Visit: Yes Status: Acute Code(s): R60.0 - LOCALIZED EDEMA SNOMED Code(s): 840433894 (5) Temporal arteritis Current Visit: Yes Status: Acute Code(s): M31.6 - OTHER GIANT CELL ARTERITIS SNOMED Code(s): 384533601 (6) Weakness Current Visit: Yes Status: Acute Code(s): R53.1 - WEAKNESS SNOMED Code(s): 83471934 Plan: 1. Bilateral LE paresis. Possibly secondary to facet disease vs edema. CVA ruled out. Neurology consulted for further recs. 2. Diastolic CHF. Likely exacerbated by recent steroid use. Lasix 40 mg qd 3. Temporal arteritis. Continue home prednisone 20 mg qd 4. T2DM. Continue metformin. Sliding scale 5. History of DVT. Continue eliquis
[2019-02-22] MEDS: predniSONE 20 MG TAB PO SCH (13:05)
[2019-02-22] MEDS: CEPHALEXIN 500 MG CAP PO SCH ×2 (13:05→21:10)
[2019-02-22 17:03] LABS: Glucose,Whole Blood 235 mg/dL (75-99)
[2019-02-22 19:39] LABS: Folate, Serum 23.3 ng/mL; Vitamin B12 >4000.0 pg/mL (211-911)
[2019-02-22 20:59] LABS: Glucose,Whole Blood 330 mg/dL (75-99)
[2019-02-22] MEDS: FAMOTIDINE 20 MG TAB PO SCH (21:10)
[2019-02-22] MEDS: traZODone HCL 50 MG TAB PO SCH (21:10)
[2019-02-22] MEDS: MAGNESIUM OXIDE 400 MG TAB PO SCH (21:10)
[2019-02-22 21:28] LABS: Hemoglobin A1C 8.9 % (4.0-6.0)
[2019-02-23] MEDS: SODIUM CHLORIDE 0.9% 1,000 ML IV SCH (05:00)
[2019-02-23 06:52] LABS: Glucose,Whole Blood 209 mg/dL (75-99)
[2019-02-23] MEDS: APIXABAN 5 MG TAB PO SCH ×2 (07:03→21:07)
[2019-02-23] MEDS: PANTOPRAZOLE 40 MG TABLET PO SCH (07:24)
[2019-02-23] MEDS: INSULIN ASPART (NovoLOG) 100 UNIT/ML VIAL SQ SCH ×4 (07:24→21:07)
[2019-02-23] MEDS: AMIODARONE 200 MG TAB PO SCH (08:23)
[2019-02-23] MEDS: DULoxetine HCL 60 MG CAPSULE.DR PO SCH (08:23)
[2019-02-23] MEDS: CEPHALEXIN 500 MG CAP PO SCH ×2 (08:23→21:07)
[2019-02-23] MEDS: CYANOCOBALAMIN 500 MCG TAB PO SCH (08:23)
[2019-02-23] MEDS: DOCUSATE 100 MG CAP PO SCH ×2 (08:23→21:07)
[2019-02-23] MEDS: FUROSEMIDE 40 MG TAB PO SCH (08:23)
[2019-02-23] MEDS: ALLOPURINOL 300 MG TAB PO SCH (08:23)
[2019-02-23] MEDS: metFORMIN 500 MG TAB PO SCH ×3 (08:24→21:07)
[2019-02-23] MEDS: MONTELUKAST 10 MG TAB PO SCH (08:24)
[2019-02-23] MEDS: predniSONE 20 MG TAB PO SCH (08:24)
[2019-02-23 09:42] LABS: Albumin 2.5 g/dL (3.5-5.0); Calcium 8.3 mg/dL (8.4-10.2); Potassium 4.2 mmol/L (3.5-5.1); Total Bilirubin 0.6 mg/dL (0.2-1.3); Total Protein 4.5 g/dL (6.3-8.2)
[2019-02-23 09:54] LABS: Anisocytosis Slight; Basophils % (A) 0 %; Eosinophils % (A) 1 %; HCT 31.3 % (34.0-46.0); HGB 10.1 gm/dL (11.4-16.0); Lymphocytes # (A) 0.6 k/uL (1.0-4.8); Lymphocytes % (A) 11 %; MCH 32.4 pg (25.0-35.0); MCHC 32.3 g/dL (31.0-37.0); MCV 100.2 fL (80.0-100.0); Macrocytosis Slight; Mean Platelet Volume 7.7; Monocytes # (A) 0.2 k/uL (0-1.0); Monocytes % (A) 3 %; Neutrophils # (A) 4.5 k/uL (1.3-7.7); Neutrophils % (A) 84 %; Platelet Count 104 k/uL (150-450); RBC 3.12 m/uL (3.80-5.40); RDW 17.6 % (11.5-15.5); WBC 5.3 k/uL (3.8-10.6)
--- NOTE | 2019-02-23 11:19 | P.PN ---
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 Pt states she has had some degree of leg weakness at baseline for years and needed a lumbar surgery to decompress her nerve roots in the past. She recently went on a long car trip to [place] about 2 weeks ago and during that time began to experience significant leg swelling and progressive weakness. She states by the time she returned to [place] she was completely unable to walk and could only shuffle her legs. Pt states that she has also noticed facial swelling ever since starting treatment for temporal arteritis. She has been on 40 mg daily prednisone for approx 1 month now and total duration of steroid treatment approx 3 months. In the ED her vitals were stable, CXR and venous doppler negative, CT head negative for acute process. Currently she complains of severe weakness in bed unable to lift her legs against gravity. 02/23/2019 standing up at bedside with walker this morning, asymptomatic. Denies nausea, vomiting or diarrhea. Denies lightheadedness, dizziness or focal deficits. Scheduled for lumbar puncture with interventional radiology today, as per neurology. VSS. Evaluated by speech therapy regarding complaints of difficulty swallowing, no impairment noted. Consuming 75-100% of meals, blood sugars running in the 200s today, and was up to 330 last night, in a patient on steroids. Creatinine 1.02. Denies chest pain, palpitations or shortness of breath.VSS, maintaining O2 sats in the 90s on room air. Objective - Vital Signs Vital signs: Vital Signs Temp 97.9 F 02/23/19 05:00 Pulse 84 02/23/19 05:00 Resp 18 02/23/19 05:00 BP 122/76 02/23/19 05:00 Pulse Ox 94 L 02/23/19 05:00 Intake & Output 02/22/19 02/23/19 02/23/19 18:59 06:59 18:59 Intake Total 1000 530 Balance 1000 530 Weight 85.275 kg 82.5 kg Intake: Intake, IV Titration 180 Amount Sodium Chloride 0.9% 1, 180 000 ml @ 20 mls/hr IV . Q24H [facility] Rx#:[id number] Oral 1000 350 Other: Voiding Method Toilet Toilet Toilet # Voids 4 2 - Exam VITAL SIGNS: As above General: well nourished, well developed. Weak and fatigued. Eyes: PERRL, EOMI, conjunctiva normal. Peripheral vision limited HENT: normocephalic, mucus membranes moist Neck: supple, no JVD Lungs: normal respiratory effort, no wheezes or rales CV: Regular rate and rhythm, no murmur. Peripheral pulses 2+ Abdomen: soft, nondistended, no organomegaly Extremities: 2+ edema bilateral LE. Str 3/5 bilateral LE to hip flexors. 4/5 to plantarflexion and dorsiflexion Skin: warm and dry. Neuro: A&Ox3, normal mood and affect. CN II-XII intact. Patellar reflexes absent - Labs CBC & Chem 7: 02/23/19 08:06 02/23/19 08:06 Labs: Abnormal Lab Results - Last 24 Hours (Table) 02/21/19 02/22/19 02/22/19 Range/Units 17:17 11:46 13:51 RBC (3.80-5.40) m/uL Hgb (11.4-16.0) gm/dL Hct (34.0-46.0) % MCV (80.0-100.0) fL RDW (11.5-15.5) % Plt Count (150-450) k/uL Lymphocytes # (1.0-4.8) k/uL Carbon Dioxide (22-30) mmol/L BUN (7-17) mg/dL Glucose (74-99) mg/dL POC Glucose (mg/dL) 152 H (75-99) mg/dL Hemoglobin A1c 8.9 H (4.0-6.0) % Calcium (8.4-10.2) mg/dL Lactate Dehydrogenase (313-618) U/L CK-MB (CK-2) 2.9 H (0.0-2.4) ng/mL Total Protein (6.3-8.2) g/dL Albumin (3.5-5.0) g/dL Vitamin B12 (211-911) pg/mL 02/22/19 02/22/19 02/22/19 Range/Units 13:51 17:02 20:57 RBC (3.80-5.40) m/uL Hgb (11.4-16.0) gm/dL Hct (34.0-46.0) % MCV (80.0-100.0) fL RDW (11.5-15.5) % Plt Count (150-450) k/uL Lymphocytes # (1.0-4.8) k/uL Carbon Dioxide (22-30) mmol/L BUN (7-17) mg/dL Glucose (74-99) mg/dL POC Glucose (mg/dL) 235 H 330 H (75-99) mg/dL Hemoglobin A1c (4.0-6.0) % Calcium (8.4-10.2) mg/dL Lactate Dehydrogenase (313-618) U/L CK-MB (CK-2) (0.0-2.4) ng/mL Total Protein (6.3-8.2) g/dL Albumin (3.5-5.0) g/dL Vitamin B12 >4000.0 H (211-911) pg/mL 02/23/19 02/23/19 02/23/19 Range/Units 06:50 08:06 08:06 RBC 3.12 L (3.80-5.40) m/uL Hgb 10.1 L (11.4-16.0) gm/dL Hct 31.3 L (34.0-46.0) % MCV 100.2 H (80.0-100.0) fL RDW 17.6 H (11.5-15.5) % Plt Count 104 L (150-450) k/uL Lymphocytes # 0.6 L (1.0-4.8) k/uL Carbon Dioxide 33 H (22-30) mmol/L BUN 33 H (7-17) mg/dL Glucose 170 H (74-99) mg/dL POC Glucose (mg/dL) 209 H (75-99) mg/dL Hemoglobin A1c (4.0-6.0) % Calcium 8.3 L (8.4-10.2) mg/dL Lactate Dehydrogenase 1279 H (313-618) U/L CK-MB (CK-2) (0.0-2.4) ng/mL Total Protein 4.5 L (6.3-8.2) g/dL Albumin 2.5 L (3.5-5.0) g/dL Vitamin B12 (211-911) pg/mL 02/23/19 Range/Units 08:06 RBC (3.80-5.40) m/uL Hgb (11.4-16.0) gm/dL Hct (34.0-46.0) % MCV (80.0-100.0) fL RDW (11.5-15.5) % Plt Count (150-450) k/uL Lymphocytes # (1.0-4.8) k/uL Carbon Dioxide (22-30) mmol/L BUN (7-17) mg/dL Glucose (74-99) mg/dL POC Glucose (mg/dL) (75-99) mg/dL Hemoglobin A1c (4.0-6.0) % Calcium (8.4-10.2) mg/dL Lactate Dehydrogenase (313-618) U/L CK-MB (CK-2) 3.3 H (0.0-2.4) ng/mL Total Protein (6.3-8.2) g/dL Albumin (3.5-5.0) g/dL Vitamin B12 (211-911) pg/mL Microbiology - Last 24 Hours (Table) 02/21/19 17:27 Urine Culture - Preliminary Urine,Voided Gram Neg Bacilli Assessment and Plan Assessment: (1) Paresis of lower extremity Current Visit: Yes Status: Acute Code(s): G83.10 - MONOPLEGIA OF LOWER LIMB AFFECTING UNSPECIFIED SIDE SNOMED Code(s): 700032723 (2) Diastolic CHF Current Visit: Yes Status: Acute Code(s): I50.30 - UNSPECIFIED DIASTOLIC (CONGESTIVE) HEART FAILURE SNOMED Code(s): 743682524 (3) S/P lumbar fusion Current Visit: Yes Status: Acute Code(s): Z98.1 - ARTHRODESIS STATUS SNOMED Code(s): 44195803949103 (4) Bilateral edema of lower extremity Current Visit: Yes Status: Acute Code(s): R60.0 - LOCALIZED EDEMA SNOMED Code(s): 802906713 (5) Temporal arteritis Current Visit: Yes Status: Acute Code(s): M31.6 - OTHER GIANT CELL ARTERITIS SNOMED Code(s): 947642345 (6) Weakness Current Visit: Yes Status: Acute Code(s): R53.1 - WEAKNESS SNOMED Code(s): 68331352 Plan: Continue current medication regime ,monitoring and symptomatic treatment. Lumbar puncture Pending with interventional radiology. Levemir added to med regime, in a patient on steroids. Close monitoring of Accu-Cheks. Follow closely with neurology. PT/OT consult in place, recommendations pending. Discharge planning, possibly for tomorrow. The impression and plan of care has been dictated as directed. : I performed a history and examination of this patient, discussed the same with the dictator. I agree with the dictator's note ,documented as a scribe. Any additional findings or plans will be noted.
[2019-02-23 11:24] LABS: Glucose,Whole Blood 187 mg/dL (75-99)
[2019-02-23] MEDS: INSULIN DETEMIR (LEVEMIR) 100 UNIT/ML SYR SQ SCH (11:46)
--- NOTE | 2019-02-23 13:30 | P.CNNES ---
History of Present Illness Consult date: 02/22/19 Reason for Consult: b/l LE weakness Chief complaint: Generalized weakness, worse in b/l LE History of Present Illness: REFERRING PHYSICIAN: Dr. Xavier Fisher HISTORY OF PRESENT ILLNESS: Thank you for allowing me to evaluate Ms. Caitlyn Castillo. Ms. Castillo is an 78 year-old woman with multiple medical problems including atrial fibrillation, diastolic CHF, asthma, COPD, GERD, hyperlipidemia, hypertension, arthritis, migraines, Giant cell arteritis diagnosed in December 2018 currently on prednisone, anxiety and depression, presenting with bilateral lower extremities x2 weeks. Patient's son is at bedside, who is the patient's main turret lathe tender. Prior to 2 weeks ago, patient was able to do most activities of daily living including bathing, dressing herself, staying active. Her son would cook for her instead. She was in [place] with her sister to a physical. Patient started having symptoms of having difficulty getting off the toilet. Patient started having swelling in her bilateral lower extremities, 2 weeks ago when she was in [place]. She denies any camping, hiking, getting insect bites. She came up to [place] from [place] on a car ride which took about 13 hours. Patient went to her primary doctor, where she was told to go to the emergency room for neurology evaluation. Patient denies any numbness or tingling sensation that was new. She states her L leg has always had issues with numbness, but for many years. No worsening symptoms. Patient denies any recent sickness, fever, nausea, vomiting, double/blurry vision (although patient was recently diagnosed with giant cell arteritis that caused lower half visual field deficit in both eyes). PAST MEDICAL HISTORY: Atrial fibrillation, asthma, COPD, GERD, hyperlipidemia, hypertension, arthritis, migraines, giant arteritis in both eyes diagnosed in December 2018 currently on prednisone, anxiety and depression, diastolic CHF PAST SURGICAL HISTORY: Appendectomy, hysterectomy, cholecystectomy, bilateral cataract surgery, neck and back surgery HOME MEDICATIONS: Duloxetine, vitamin D, magnesium, Singulair, omeprazole ALLERGIES: Tetanus, adhesives SOCIAL HISTORY: Denies smoking, alcohol abuse, drug abuse history. FAMILY HISTORY: History of stomach cancer and breast cancer. Her sister had breast cancer. Patient's last mammogram one year ago. She was told that she doesn't need additional mammogram after the age of 78. REVIEW OF SYSTEMS: The 14 systems are reviewed and no additional points are identified compared to the review of systems documented history and physical PHYSICAL EXAMINATION: VITAL SIGNS: Temperature 97.9 pulse rate 85 respiratory rate 16 blood pressure 110/70 O2 saturation 96% on room air GEN.: NAD, pleasant and cooperative HEENT: NCAT, sclera without icterus NECK: Supple SKIN AND EXTREMITIES: Warm to touch, mild pitting edema in both lower extremities NEURO: MENTAL STATUS: Patient alert and oriented to self, place, time. Able to name the current president. Speech fluent, able to name and repeat, following all commands readily. No right and left disorientation CRANIAL NERVES II THROUGH XII: II: Pupils are equal and reactive to light symmetrically. Visual field deficit in bottom half in both eyes III, IV, : No ptosis. Extraocular movements full. No nystagmus. V: Facial sensation intact from V1-3. VII. No clear facial asymmetry. VIII: Hearing intact to finger rub bilaterally. IX, X: Symmetric palate elevation. XII: Shoulder shrug intact. XII: Tongue midline without fasciculation or atrophy. MOTOR: Normal bulk/tone. Some weakness in RUE (pt states she's had this weakness previously, thinks it could be from her arthritis, but denies pain with movement at this time). RUE deltoids/biceps/triceps 4-/5, b/l finger rehab nursing tech 4/5, LUE 4+/5, b/l hip flexion/extension 1/5 b/l knee flexion/extension 2/5 b/l plantarflexion/dorsiflexion 5/5 SENSORY: Intact to light touch in all 4 extremities. REFLEXES: 1+ throughout. Toes are downgoing. COORDINATION: Finger to nose intact. No dysmetria. GAIT: Deferred due to b/l LE weakness DIAGNOSTIC TESTING: LABORATORY: WBC 8.0 (12.0 platelets 121 PTT 10.1 INR 0.9 sodium 137 potassium 3.7 chloride 100 bicarb 31 BUN 40 creatinine 0.94 glucose 288 AST 23 ALT 65 urinalysis 1+ protein 4+ glucose IMAGING: CT head without contrast 02/22/2019: no acute hemorrhage, hydrocephalus or mass effect. Mild left mastoid effusion. ASSESSMENT: Ms. Castillo is an 78 year-old woman with multiple medical problems including atrial fibrillation, diastolic CHF, asthma, COPD, GERD, hyperlipidemia, hypertension, arthritis, migraines, Giant cell arteritis diagnosed in December 2018 currently on prednisone, anxiety and depression, presenting with bilateral lower extremities x2 weeks. Patient has been on steroids since December 2018 for giant cell arteritis, which could be caused acutely or chronically. 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 Patient with no recent sickness, and no typical ascending symptoms that we would see in guillain-barre syndrome or other demyelinating conditions. Patient also with no sensation deficit that's more than her usual. RECOMMENDATIONS: 1. CK, LDH (usually normal in steroid-induced myopathy) 2. IR-guided LP for CSF studies; will consider IVIG if it shows any indication of demyelination. 3. Patient will need EMG/NCS as outpatient for a more definite diagnosis. 4. 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 An increase in muscle strength can be observed within 3 to 4 weeks after discontinuation of the glucocorticoid. An adequate protein intake is helpful in preventing rapid acceleration of symptoms. 5. Physical therapy/occupational therapy 6. Neurology will continue to follow Past Medical History Past Medical History: Atrial Fibrillation, Asthma, COPD, GERD/Reflux, Hyperlipidemia, Hypertension, Osteoarthritis (OA) Additional Past Medical History / Comment(s): HX KIDNEY STONES, MIGRAINE HEADACHES,URINARY INCONTINENCE See Dr Montanez's H&P for cardiac history. lg cell arthritis both eyes- steriod treatment, only on metformin because elevated blood sugars due to steroid treatment( December 18, 2018) not officially diagnosed with diabetes History of Any Multi-Drug Resistant Organisms: None Reported Past Surgical History: Appendectomy, Back Surgery, Bladder Surgery, Breast Surgery, Cholecystectomy, Hysterectomy, Orthopedic Surgery Additional Past Surgical History / Comment(s): RT BREAST BX, NECK SURGERY X2, HEMMORRHIDECTOMY,. COLONSCOPY. BILAT. CATARACTS. BLADDER SUSPENSION. BILAT CTR. 10 vertebrae "surgical placed". left artery removed left head. recently this month had hip cortizone injection Past Anesthesia/Blood Transfusion Reactions: No Reported Reaction Past Psychological History: Anxiety, Depression Smoking Status: Never smoker Past Alcohol Use History: None Reported Past Drug Use History: None Reported - Past Family History Sister(s) Family Medical History: Cancer Medications and Allergies Home Medications Medication Instructions Recorded Confirmed Type DULoxetine HCL [Cymbalta] 60 mg PO DAILY 02/21/15 02/21/19 History Ergocalciferol (Vitamin D2) 50,000 unit PO 02/21/15 02/21/19 History [Vitamin D2] Magnesium Oxide [Mag-Ox] 400 mg PO HS 02/21/15 02/21/19 History Mirabegron [Myrbetriq] 50 mg PO DAILY PRN 02/21/15 02/21/19 History Montelukast [Singulair] 10 mg PO DAILY 02/21/15 02/21/19 History Omeprazole 40 mg PO DAILY 02/21/15 02/21/19 History Apixaban [Eliquis] 5 mg PO BID 09/30/17 02/21/19 History Docusate [Colace] 100 mg PO DAILY 09/30/17 02/21/19 History Ranitidine HCl [Zantac] 150 mg PO HS 09/30/17 02/21/19 History Amiodarone [Cordarone] 200 mg PO DAILY #90 tab 10/05/17 02/21/19 Rx Albuterol Inhaler [Ventolin Hfa 2 puff INHALATION RT-Q6H PRN 02/21/19 02/21/19 History Inhaler] Allopurinol [Zyloprim] 300 mg PO HS 02/21/19 02/21/19 History Colon Health 1 tab PO DAILY 02/21/19 02/21/19 History Cyanocobalamin (Vitamin B-12) 1,000 mcg PO DAILY 02/21/19 02/21/19 History [Vitamin B-12] Furosemide [Lasix] 40 mg PO DAILY 02/21/19 02/21/19 History Loratadine [Claritin] 10 mg PO DAILY 02/21/19 02/21/19 History metFORMIN HCL [Glucophage] 500 mg PO DAILY 02/21/19 02/21/19 History predniSONE 10 mg PO TID 02/21/19 02/21/19 History traMADol HCL [Ultram] 50 mg PO DAILY PRN 02/21/19 02/21/19 History traZODone HCL 50 mg PO HS 02/21/19 02/21/19 History Allergies Allergy/AdvReac Type Severity Reaction Status Date / Time adhesive AdvReac blisters Verified 08/12/19 17:09 tetanus toxoid, adsorbed AdvReac RED SKIN Verified 02/21/19 17:09 AND SWELLING AT SITE Physical Examination - Vital Signs Vital Signs: Vital Signs Temp Pulse Pulse Pulse Resp BP BP 02/22/19 06:01 97.9 F 85 16 110/70 02/22/19 00:15 98.0 F 89 16 133/69 02/21/19 23:07 85 16 134/73 02/21/19 21:50 86 16 122/73 02/21/19 15:23 97.9 F 96 18 143/82 Pulse Ox 02/22/19 06:01 96 02/22/19 00:15 93 L 02/21/19 23:07 96 02/21/19 21:50 96 02/21/19 15:23 96 Intake and Output 02/21/19 02/22/19 02/22/19 22:59 06:59 14:59 Intake Total 280 Balance 280 Intake: Intake, IV Titration 80 Amount Sodium Chloride 0.9% 1, 80 000 ml @ 20 mls/hr IV . Q24H [facility] Rx#:[id number] Oral 200 Other: Voiding Method Toilet Toilet # Voids 1 # Bowel Movements 1 Weight 85.275 kg Results - Laboratory Findings CBC and BMP: 02/21/19 17:27 02/21/19 17:27 Abnormal Lab Findings: Abnormal Labs 02/21/19 02/21/19 02/21/19 17:27 17:27 17:27 RBC 3.69 L RDW 16.4 H Plt Count 121 L Lymphocytes # 0.3 L APTT 19.3 L Carbon Dioxide 31 H BUN 40 H Glucose 288 H POC Glucose (mg/dL) ALT 65 H Total Protein 5.6 L Albumin 3.3 L Urine Protein Urine Glucose (UA) Ur Leukocyte Esterase Urine WBC Urine Mucus 02/21/19 02/21/19 02/22/19 17:27 23:42 01:57 RBC RDW Plt Count Lymphocytes # APTT Carbon Dioxide BUN Glucose POC Glucose (mg/dL) 233 H 231 H ALT Total Protein Albumin Urine Protein 1+ H Urine Glucose (UA) 4+ H Ur Leukocyte Esterase Small H Urine WBC 22 H Urine Mucus Rare H 02/22/19 02/22/19 07:24 11:46 RBC RDW Plt Count Lymphocytes # APTT Carbon Dioxide BUN Glucose POC Glucose (mg/dL) 178 H 152 H ALT Total Protein Albumin Urine Protein Urine Glucose (UA) Ur Leukocyte Esterase Urine WBC Urine Mucus
--- NOTE | 2019-02-23 13:33 | P.PN ---
Progress Note - Text Progress Note Date: 02/23/19 SUBJECTIVE/INTERVAL EVENTS: Overnight events. Patient reports that she's been sleeping quite a bit. He denies worsening weakness. No worsening numbness or tingling. Spoke to nurse about whether or not patient will be able to get IR guided lumbar puncture today. Nurse states that he had has not been called from IR yet, but that is the plan for today. PHYSICAL EXAMINATION: VITAL SIGNS: Temperature 90.8 pulse rate 87 respiratory 17 blood pressure 112/67 O2 saturation 97% on room air GEN.: NAD, pleasant and cooperative HEENT: NCAT, sclera without icterus NECK: Supple SKIN AND EXTREMITIES: Warm to touch, mild pitting edema in both lower extremit ies NEURO: MENTAL STATUS: Patient alert and oriented to self, place, time. Able to name the current president. Speech fluent, able to name and repeat, following all commands readily. No right and left disorientation CRANIAL NERVES II THROUGH XII: II: Pupils are equal and reactive to light symmetrically. Visual field deficit in bottom half in both eyes III, IV, : No ptosis. Extraocular movements full. No nystagmus. V: Facial sensation intact from V1-3. VII. No clear facial asymmetry. VIII: Hearing intact to finger rub bilaterally. IX, X: Symmetric palate elevation. XII: Shoulder shrug intact. XII: Tongue midline without fasciculation or atrophy. MOTOR: Normal bulk/tone. Some weakness in RUE (pt states she's had this weakness previously, thinks it could be from her arthritis, but denies pain with movement at this time). RUE deltoids/biceps/triceps 4-/5, b/l finger senior qc technician 4/5, LUE 4+/5, b/l hip flexion/extension 1/5 b/l knee flexion/extension 2/5 b/l chino ntarflexion/dorsiflexion 5/5 SENSORY: Intact to light touch in all 4 extremities. REFLEXES: 1+ throughout. Toes are downgoing. COORDINATION: Finger to nose intact. No dysmetria. GAIT: Deferred due to b/l LE weakness DIAGNOSTIC TESTING: LABORATORY: WBC 5.3 hemoglobin 10.1 platelets 4 sodium 140 potassium 4.2 chloride 103 bicarb 33 BUN 33 cranial 0.02 glucose 170 LDH 1279 CK 3.3 IMAGING: CT head without contrast 02/22/2019: no acute hemorrhage, hydrocephalus or mass effect. Mild left mastoid effusion. ASSESSMENT: Ms. Castillo is an 78 year-old woman with multiple medical problems including atrial fibrillation, diastolic CHF, asthma, COPD, GERD, hyperlipidemia, hypertension, arthritis, migraines, Giant cell arteritis diagnosed in December 2018 currently on prednisone, anxiety and depression, presenting with bilateral lower extremities x2 weeks. Patient has been on steroids since December 2018 for giant cell arteritis, which could be caused acutely or chronically. 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 Patient with no recent sickness, and no typical ascending symptoms that we would see in guillain-barre syndrome or other demyelinating conditions. Patient also with no sensation deficit that's more than her usual. RECOMMENDATIONS: 1. CK, LDH (usually normal in steroid-induced myopathy, but elevated in this patient) 2. IR-guided LP for CSF studies; will consider IVIG if it shows any indication of demyelination. 3. Patient will need EMG/NCS as outpatient for a more definite diagnosis. 4. 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 An increase in muscle strength can be observed within 3 to 4 weeks after discontinuation of the glucocorticoid. An adequate protein intake is helpful in preventing rapid acceleration of symptoms. 5. Physical therapy/occupational therapy 6. Neurology will continue to follow
[2019-02-23 16:47] LABS: Glucose,Whole Blood 243 mg/dL (75-99)
[2019-02-23 19:27] LABS: Glucose,Whole Blood 285 mg/dL (75-99)
[2019-02-23] MEDS: FAMOTIDINE 20 MG TAB PO SCH (21:07)
[2019-02-23] MEDS: MAGNESIUM OXIDE 400 MG TAB PO SCH (21:07)
[2019-02-23] MEDS: traZODone HCL 50 MG TAB PO SCH (21:07)
[2019-02-24] MEDS: SODIUM CHLORIDE 0.9% 1,000 ML IV SCH (02:47)
[2019-02-24 07:05] LABS: Glucose,Whole Blood 115 mg/dL (75-99)
[2019-02-24] MEDS: INSULIN ASPART (NovoLOG) 100 UNIT/ML VIAL SQ SCH ×4 (07:07→21:59)
[2019-02-24] MEDS: PANTOPRAZOLE 40 MG TABLET PO SCH (07:18)
[2019-02-24] MEDS: INSULIN DETEMIR (LEVEMIR) 100 UNIT/ML SYR SQ SCH (07:18)
[2019-02-24] MEDS: DULoxetine HCL 60 MG CAPSULE.DR PO SCH (08:20)
[2019-02-24] MEDS: FUROSEMIDE 40 MG TAB PO SCH (08:20)
[2019-02-24] MEDS: CYANOCOBALAMIN 500 MCG TAB PO SCH (08:20)
[2019-02-24] MEDS: AMIODARONE 200 MG TAB PO SCH (08:20)
[2019-02-24] MEDS: ALLOPURINOL 300 MG TAB PO SCH (08:20)
[2019-02-24] MEDS: CEPHALEXIN 500 MG CAP PO SCH (08:20)
[2019-02-24] MEDS: DOCUSATE 100 MG CAP PO SCH ×2 (08:20→21:59)
[2019-02-24] MEDS: MONTELUKAST 10 MG TAB PO SCH (08:21)
[2019-02-24] MEDS: metFORMIN 500 MG TAB PO SCH ×3 (08:21→22:01)
[2019-02-24] MEDS: predniSONE 20 MG TAB PO SCH (08:21)
[2019-02-24 08:51] LABS: Albumin 3.3 g/dL (3.5-5.0); Anisocytosis Slight; Basophils % (A) 0 %; Calcium 8.7 mg/dL (8.4-10.2); Eosinophils # (A) 0.1 k/uL (0-0.7); Eosinophils % (A) 1 %; HCT 37.5 % (34.0-46.0); HGB 12.1 gm/dL (11.4-16.0); Lymphocytes # (A) 1.2 k/uL (1.0-4.8); Lymphocytes % (A) 12 %; MCH 31.9 pg (25.0-35.0); MCHC 32.2 g/dL (31.0-37.0); Macrocytosis Slight; Monocytes # (A) 0.3 k/uL (0-1.0); Monocytes % (A) 3 %; Neutrophils # (A) 7.9 k/uL (1.3-7.7); Neutrophils % (A) 83 %; Platelet Count 137 k/uL (150-450); Potassium 3.4 mmol/L (3.5-5.1); RBC 3.78 m/uL (3.80-5.40); RDW 16.4 % (11.5-15.5); Total Bilirubin 0.8 mg/dL (0.2-1.3); Total Protein 5.6 g/dL (6.3-8.2); WBC 9.5 k/uL (3.8-10.6)
[2019-02-24] MEDS: APIXABAN 5 MG TAB PO SCH (10:12)
[2019-02-24 11:22] LABS: Glucose,Whole Blood 122 mg/dL (75-99)
--- NOTE | 2019-02-24 13:16 | P.PN ---
Subjective Progress Note Date: 02/24/19 Caitlyn Castillo is an 78 yo F with PMH significant for disc disease s/p lumbar fusion, diastolic CHF, a fib, COPD, 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 Pt states she has had some degree of leg weakness at baseline for years and needed a lumbar surgery to decompress her nerve roots in the past. She recently went on a long car trip to [place] about 2 weeks ago and during that time began to experience significant leg swelling and progressive weakness. She states by the time she returned to [place] she was completely unable to walk and could only shuffle her legs. Pt states that she has also noticed facial swelling ever since starting treatment for temporal arteritis. She has been on 40 mg daily prednisone for approx 1 month now and total duration of steroid treatment approx 3 months. In the ED her vitals were stable, CXR and venous doppler negative, CT head negative for acute process. Currently she complains of severe weakness in bed unable to lift her legs against gravity. 02/23/2019 standing up at bedside with walker this morning, asymptomatic. Denies nausea, vomiting or diarrhea. Denies lightheadedness, dizziness or focal deficits. Scheduled for lumbar puncture with interventional radiology today, as per neurology. VSS. Evaluated by speech therapy regarding complaints of difficulty swallowing, no impairment noted. Consuming 75-100% of meals, blood sugars running in the 200s today, and was up to 330 last night, in a patient on steroids. Creatinine 1.02. Denies chest pain, palpitations or shortness of breath.VSS, maintaining O2 sats in the 90s on room air. 02/24/2018. Eliquis on hold, lumbar puncture pending. Increasing mobility.VSS, afebrile. Long-acting insulin added to med regime yesterday with blood sugars controlled. EKG from February 21 reporting sinus rhythm, possible anterior infarct, age undetermined. Neurology's recommendations noted and appreciated. Denies lightheadedness dizziness or focal deficits. Denies chest pain, palpit ations or shortness of breath. Objective - Vital Signs Vital signs: Vital Signs Temp 98.6 F 02/24/19 11:55 Pulse 96 02/24/19 11:55 Resp 17 02/24/19 11:55 BP 120/67 02/24/19 11:55 Pulse Ox 97 02/24/19 11:55 Intake & Output 02/23/19 02/24/19 02/24/19 18:59 06:59 18:59 Intake Total 360 Balance 360 Weight 83 kg Intake: Intake, IV Titration 120 Amount Sodium Chloride 0.9% 1, 120 000 ml @ 20 mls/hr IV . Q24H [facility] Rx#:[id number] Oral 240 Other: Voiding Method Toilet Toilet Toilet # Voids 1 2 # Bowel Movements 1 - Exam VITAL SIGNS: As above General: well nourished, well developed. Generalized weakness Eyes: PERRL, EOMI, conjunctiva normal. Peripheral vision limited HENT: normocephalic, mucus membranes moist Neck: supple, no JVD Lungs: normal respiratory effort, no wheezes or rales CV: Regular rate and rhythm, no murmur. Peripheral pulses 2+ Abdomen: soft, nondistended, no organomegaly Extremities: 2+ edema bilateral LE. Str 4/5 bilateral LE to hip flexors. 4/5 to plantarflexion and dorsiflexion Skin: warm and dry. Neuro: A&Ox3, normal mood and affect. CN II-XII intact. - Labs CBC & Chem 7: 02/24/19 08:13 02/24/19 08:13 Labs: Abnormal Lab Results - Last 24 Hours (Table) 02/23/19 02/23/19 02/24/19 Range/Units 16:46 19:22 07:04 RBC (3.80-5.40) m/uL RDW (11.5-15.5) % Plt Count (150-450) k/uL Neutrophils # (1.3-7.7) k/uL Potassium (3.5-5.1) mmol/L Carbon Dioxide (22-30) mmol/L BUN (7-17) mg/dL Creatinine (0.52-1.04) mg/dL Glucose (74-99) mg/dL POC Glucose (mg/dL) 243 H 285 H 115 H (75-99) mg/dL Total Protein (6.3-8.2) g/dL Albumin (3.5-5.0) g/dL 08/15/19 08/15/19 08/15/19 Range/Units 08:13 08:13 11:21 RBC 3.78 L (3.80-5.40) m/uL RDW 16.4 H (11.5-15.5) % Plt Count 137 L (150-450) k/uL Neutrophils # 7.9 H (1.3-7.7) k/uL Potassium 3.4 L (3.5-5.1) mmol/L Carbon Dioxide 34 H (22-30) mmol/L BUN 34 H (7-17) mg/dL Creatinine 1.12 H (0.52-1.04) mg/dL Glucose 111 H (74-99) mg/dL POC Glucose (mg/dL) 122 H (75-99) mg/dL Total Protein 5.6 L (6.3-8.2) g/dL Albumin 3.3 L (3.5-5.0) g/dL Microbiology - Last 24 Hours (Table) 02/21/19 17:27 Urine Culture - Final Urine,Voided Enterobacter aerogenes Assessment and Plan Assessment: (1) Paresis of lower extremity Current Visit: Yes Status: Acute Code(s): G83.10 - MONOPLEGIA OF LOWER LIMB AFFECTING UNSPECIFIED SIDE SNOMED Code(s): 022765906 (2) Diastolic CHF Current Visit: Yes Status: Acute Code(s): I50.30 - UNSPECIFIED DIASTOLIC (CONGESTIVE) HEART FAILURE SNOMED Code(s): 080148060 (3) S/P lumbar fusion Current Visit: Yes Status: Acute Code(s): Z98.1 - ARTHRODESIS STATUS SNOMED Code(s): 12105865748881 (4) Bilateral edema of lower extremity Current Visit: Yes Status: Acute Code(s): R60.0 - LOCALIZED EDEMA SNOMED Code(s): 216249767 (5) Temporal arteritis Current Visit: Yes Status: Acute Code(s): M31.6 - OTHER GIANT CELL ARTERITIS SNOMED Code(s): 772607524 (6) Weakness Current Visit: Yes Status: Acute Code(s): R53.1 - WEAKNESS SNOMED Code(s): 53189242 Plan: Continue current medication regime ,monitoring and symptomatic treatment. Continue holding anticoagulation, Lumbar puncture pending.troponins added to labs.Close monitoring of Accu-Cheks. Neurology workup in progress. Subacute rehab recommended by PT, social work consult initiated. Discharge planning in progress pending Lumbar puncture results. The impression and plan of care has been dictated as directed. : I performed a history and examination of this patient, discussed the same with the dictator. I agree with the dictator's note ,documented as a scribe. Any additional findings or plans will be noted.
[2019-02-24 17:05] LABS: Glucose,Whole Blood 263 mg/dL (75-99)
[2019-02-24 20:40] LABS: Glucose,Whole Blood 266 mg/dL (75-99)
[2019-02-24] MEDS: FAMOTIDINE 20 MG TAB PO SCH (21:59)
[2019-02-24] MEDS: traZODone HCL 50 MG TAB PO SCH (22:00)
[2019-02-24] MEDS: MAGNESIUM OXIDE 400 MG TAB PO SCH (22:00)
[2019-02-24] MEDS: SULFAMETHOX-TMP 800-160MG 1 EACH TAB PO SCH (22:00)
[2019-02-25] MEDS: SODIUM CHLORIDE 0.9% 1,000 ML IV SCH (05:48)
[2019-02-25 07:00] LABS: Glucose,Whole Blood 89 mg/dL (75-99)
[2019-02-25] MEDS: INSULIN ASPART (NovoLOG) 100 UNIT/ML VIAL SQ SCH ×4 (07:11→21:49)
[2019-02-25 07:50] LABS: Anisocytosis Slight; Basophils % (A) 0 %; Eosinophils % (A) 1 %; HCT 31.7 % (34.0-46.0); HGB 10.4 gm/dL (11.4-16.0); Lymphocytes # (A) 0.9 k/uL (1.0-4.8); Lymphocytes % (A) 14 %; MCHC 32.8 g/dL (31.0-37.0); MCV 97.5 fL (80.0-100.0); Macrocytosis Slight; Mean Platelet Volume 6.7; Monocytes # (A) 0.2 k/uL (0-1.0); Monocytes % (A) 3 %; Neutrophils # (A) 5.2 k/uL (1.3-7.7); Neutrophils % (A) 81 %; Platelet Count 129 k/uL (150-450); RBC 3.25 m/uL (3.80-5.40); RDW 16.4 % (11.5-15.5); WBC 6.5 k/uL (3.8-10.6)
[2019-02-25] MEDS: CYANOCOBALAMIN 500 MCG TAB PO SCH (07:51)
[2019-02-25] MEDS: metFORMIN 500 MG TAB PO SCH ×3 (07:51→21:49)
[2019-02-25] MEDS: PANTOPRAZOLE 40 MG TABLET PO SCH (07:51)
[2019-02-25] MEDS: INSULIN DETEMIR (LEVEMIR) 100 UNIT/ML SYR SQ SCH (07:51)
[2019-02-25] MEDS: MONTELUKAST 10 MG TAB PO SCH (07:51)
[2019-02-25] MEDS: AMIODARONE 200 MG TAB PO SCH (07:52)
[2019-02-25] MEDS: FUROSEMIDE 40 MG TAB PO SCH (07:52)
[2019-02-25] MEDS: DOCUSATE 100 MG CAP PO SCH ×2 (07:52→21:49)
[2019-02-25] MEDS: ALLOPURINOL 300 MG TAB PO SCH (07:52)
[2019-02-25] MEDS: DULoxetine HCL 60 MG CAPSULE.DR PO SCH (07:52)
[2019-02-25] MEDS: predniSONE 20 MG TAB PO SCH (07:52)
[2019-02-25] MEDS: SULFAMETHOX-TMP 800-160MG 1 EACH TAB PO SCH ×2 (07:54→21:55)
[2019-02-25 08:17] LABS: Albumin 2.8 g/dL (3.5-5.0); Calcium 8.4 mg/dL (8.4-10.2); Magnesium 1.4 mg/dL (1.6-2.3); Potassium 3.5 mmol/L (3.5-5.1); Total Bilirubin 0.6 mg/dL (0.2-1.3); Total Protein 4.9 g/dL (6.3-8.2)
--- NOTE | 2019-02-25 10:34 | P.CRDCN ---
History of Present Illness History of present illness: This is a pleasant 78-year-old female past medical history significant for paroxysmal atrial fibrillation s/p successful cardioversion on senior living anti-coagulation, hypertension, dyslipidemia, COPD, giant cell arterial tightness maintained on steroids and asthma. She follows in the office with Dr. Sanchez. We've been asked to see her in consultation secondary to increased we akness, elevated troponin and abnormal EKG. She presented to the hospital on February 21 with symptoms of weakness times one to 2 weeks. She feels like she is unable to move her legs and is also describing lower extremity edema. She has been seen in consultation by neurology and they are proceeding with an LP today to assess for IVIG. She is seen and examined laying flat in bed in no acute distress. She denies having had any symptoms of chest pain, shortness of breath, dizziness or palpitations. She continues to feel lower extremity weakness. Eliquis is on hold for LP. She recently wore a HOlter monitor in the office revealing sinus bradycardia with evidence of chronotropic incompetence. Loop recorder discussed with the patient and her son. EKG reveals sinus mechanism, PVC and poor R-wave progression. Telemetry tracings unremarkable show consistent sinus mechanism. Chest x-ray is negative for an acute cardiopulmonary process. CT brain is negative for an acute process. Evidence of mild left mastoid effusion. Bilateral lower extremity venous duplex is negative for DVT bilaterally. Laboratory data reviewed, WBC 6.5, hemoglobin 10.4, platelets 129, sodium 138, potassium 3.5, creatinine 0.99, magnesium 1.4, troponin 0.064, proBNP 1240, AST 22, PLT 50. Current cardiac medications include Eliquis 5 mg twice a day, Lasix 40 mg daily and amiodarone 200 mg daily. At the time of my exam: CONSTITUTIONAL: Denies fever. Denies chills. EYES: Denies blurred vision. Denies vision changes. Denies eye pain. EARS, NOSE, MOUTH & THROAT: Denies headache. Denies sore throat. Denies ear pain . CARDIOVASCULAR: Denies chest pain. Denies shortness of breath. Denies orthopnea. Denies PND. Denies palpitations. RESPIRATORY: Denies cough. GASTROINTESTINAL: Denies abdominal pain. Denies diarrhea. Denies constipation. Denies nausea. Denies vomiting. MUSCULOSKELETAL: Denies myalgias. INTEGUMENTARY: Denies pruitis. Denies rash. NEUROLOGIC: Denies numbness. Denies tingling. Denies weakness. PSYCHIATRIC: Denies anxiety. Denies depression. ENDOCRINE: Denies fatigue. Denies weight change. Denies polydipsia. Denies polyurina. GENITOURINARY: Denies burning, hematuria or urgency with micturation. HEMATOLOGIC: Denies history of anemia. Denies bleeding. Blood pressure 110/69 heart rate 87 afebrile maintaining oxygen saturation on room air GENERAL: This is a 78-year-old female in no apparent distress at the time of my examination. HEENT: Head is atraumatic, normocephalic. Pupils are equal, round. Sclerae anicteric. Conjunctivae are clear. Mucous membranes of the mouth are moist. Neck is supple. There is no jugular venous distention. No carotid bruit is heard. LUNGS: Clear to auscultation no wheezes, rales or rhonchi. No chest wall tenderness is noted on palpation or with deep breathing. HEART: Regular rate and rhythm without murmurs, rubs or gallops. S1 and S2 heard. ABDOMEN: Soft, nontender. Bowel sounds are heard. No organomegaly noted. EXTREMITIES: No evidence of peripheral edema and no calf tenderness noted. VASCULAR: Radial and dorsalis pedis pulses palpated, no evidence of clubbing. NEUROLOGIC: Patient is awake, alert and oriented x3. ASSESSMENT Increased lower extremity weakness Paroxysmal atrial fibrillation s/p cardioversion on senior living anticoagulation Mild troponin elevation, no symptoms of angina and no EKG changes. Hypertension Dyslipidemia COPD PLAN Obtain 2D echocardiogram and doppler study to assess cardiac structure and function. No cardiac etiology to explain lower extremity weakness. Ongoing management per neurology and primary care team. Follow up with Dr. Montanez in 2 weeks. Thank you kindly for this consultation. Nurse Practitioner note has been reviewed, I agree with a documented findings and plan of care. Patient was seen and examined. Past Medical History Past Medical History: Asthma, COPD, GERD/Reflux, Hyperlipidemia, Hypertension, Osteoarthritis (OA) Additional Past Medical History / Comment(s): HX KIDNEY STONES, MIGRAINE HEADACHES,URINARY INCONTINENCE See Dr Montanez's H&P for cardiac history. lg cell arthritis- steriod treatment History of Any Multi-Drug Resistant Organisms: None Reported Past Surgical History: Appendectomy, Back Surgery, Bladder Surgery, Breast Surgery, Cholecystectomy, Hysterectomy, Orthopedic Surgery Additional Past Surgical History / Comment(s): RT BREAST BX, NECK SURGERY X2, HEMMORRHIDECTOMY,. COLONSCOPY. BILAT. CATARACTS. BLADDER SUSPENSION. BILAT CTR. 10 vertebrae "surgical placed" Past Anesthesia/Blood Transfusion Reactions: No Reported Reaction Past Psychological History: Anxiety, Depression Smoking Status: Never smoker Past Alcohol Use History: None Reported Past Drug Use History: None Reported - Past Family History Sister(s) Family Medical History: Cancer Medications and Allergies Home Medications Medication Instructions Recorded Confirmed Type DULoxetine HCL [Cymbalta] 60 mg PO DAILY 02/21/15 02/21/19 History Ergocalciferol (Vitamin D2) 50,000 unit PO TU 02/21/15 02/21/19 History [Vitamin D2] Magnesium Oxide [Mag-Ox] 400 mg PO HS 02/21/15 02/21/19 History Mirabegron [Myrbetriq] 50 mg PO DAILY PRN 02/21/15 02/21/19 History Montelukast [Singulair] 10 mg PO DAILY 02/21/15 02/21/19 History Omeprazole 40 mg PO DAILY 02/21/15 02/21/19 History Apixaban [Eliquis] 5 mg PO BID 09/30/17 02/21/19 History Docusate [Colace] 100 mg PO DAILY 09/30/17 02/21/19 History Ranitidine HCl [Zantac] 150 mg PO HS 09/30/17 02/21/19 History Amiodarone [Cordarone] 200 mg PO DAILY #90 tab 10/05/17 02/21/19 Rx Albuterol Inhaler [Ventolin Hfa 2 puff INHALATION RT-Q6H PRN 02/21/19 02/21/19 History Inhaler] Allopurinol [Zyloprim] 300 mg PO HS 02/21/19 02/21/19 History Colon Health 1 tab PO DAILY 02/21/19 02/21/19 History Cyanocobalamin (Vitamin B-12) 1,000 mcg PO DAILY 02/21/19 02/21/19 History [Vitamin B-12] Furosemide [Lasix] 40 mg PO DAILY 02/21/19 02/21/19 History Loratadine [Claritin] 10 mg PO DAILY 02/21/19 02/21/19 History metFORMIN HCL [Glucophage] 500 mg PO DAILY 02/21/19 02/21/19 History predniSONE 10 mg PO TID 02/21/19 02/21/19 History traMADol HCL [Ultram] 50 mg PO DAILY PRN 02/21/19 02/21/19 History traZODone HCL 50 mg PO HS 02/21/19 02/21/19 History Allergies Allergy/AdvReac Type Severity Reaction Status Date / Time adhesive AdvReac blisters Verified 02/21/19 17:09 tetanus toxoid, adsorbed AdvReac RED SKIN Verified 02/21/19 17:09 AND SWELLING AT SITE Physical Exam Vitals: Vital Signs Temp Pulse Pulse Resp BP Pulse Ox 02/25/19 04:59 98.1 F 87 18 110/69 93 L 02/24/19 21:00 98.2 F 95 18 128/75 94 L 02/24/19 16:00 85 02/24/19 11:55 98.6 F 96 17 120/67 97 Intake and Output 02/24/19 02/25/19 02/25/19 22:59 06:59 14:59 Intake Total 50 160 Balance 50 160 Intake: Intake, IV Titration 50 160 Amount Sodium Chloride 0.9% 1, 50 160 000 ml @ 20 mls/hr IV . Q24H REPLACED BY [facility] Rx#:[id number] Other: Voiding Method Toilet Toilet # Voids 1 1 Weight 82 kg Results 02/25/19 07:05 02/25/19 07:05 Cardiac Enzymes 02/24/19 02/25/19 Range/Units 13:25 07:05 AST 22 (14-36) U/L Troponin I 0.064 H* (0.000-0.034) ng/mL CBC 02/25/19 Range/Units 07:05 WBC 6.5 (3.8-10.6) k/uL RBC 3.25 L (3.80-5.40) m/uL Hgb 10.4 L (11.4-16.0) gm/dL Hct 31.7 L (34.0-46.0) % Plt Count 129 L (150-450) k/uL Comprehensive Metabolic Panel 02/25/19 Range/Units 07:05 Sodium 138 (137-145) mmol/L Potassium 3.5 (3.5-5.1) mmol/L Chloride 96 L (98-107) mmol/L Carbon Dioxide 36 H (22-30) mmol/L BUN 37 H (7-17) mg/dL Creatinine 0.99 (0.52-1.04) mg/dL Glucose 80 (74-99) mg/dL Calcium 8.4 (8.4-10.2) mg/dL AST 22 (14-36) U/L ALT 50 (9-52) U/L Alkaline Phosphatase 62 (38-126) U/L Total Protein 4.9 L (6.3-8.2) g/dL Albumin 2.8 L (3.5-5.0) g/dL Current Medications Generic Name Dose Route Start Last Admin Trade Name Freq PRN Reason Stop Dose Admin Acetaminophen 650 mg 02/21/19 22:21 Tylenol Tab PO Q6HR PRN Mild Pain or Fever > 100.5 Albuterol Sulfate 2.5 mg 02/21/19 22:22 Ventolin Nebulized INHALATION RT-Q6H PRN Shortness Of Breath Allopurinol 300 mg 02/22/19 09:00 02/25/19 07:52 Zyloprim PO 300 mg DAILY EVI Administration Amiodarone HCl 200 mg 02/22/19 09:00 02/25/19 07:52 Cordarone PO 200 mg DAILY EVI Administration Cyanocobalamin 1,000 mcg 02/22/19 09:00 02/25/19 07:51 Vitamin B-12 PO 1,000 mcg DAILY EVI Administration Docusate Sodium 100 mg 02/22/19 09:00 02/25/19 07:52 Colace PO 100 mg BID EVI Administration Duloxetine HCl 60 mg 02/22/19 09:00 02/25/19 07:52 Cymbalta PO 60 mg DAILY EVI Administration Ergocalciferol 50,000 unit 02/22/19 09:00 02/22/19 07:47 Vitamin D2 PO 50,000 unit Tu@0900 EVI Administration Famotidine 20 mg 02/22/19 21:00 02/24/19 21:59 Pepcid PO 20 mg HS EVI Administration Furosemide 40 mg 02/22/19 09:00 02/25/19 07:52 Lasix PO 40 mg DAILY EVI Administration Sodium Chloride 1,000 mls @ 20 mls/hr 02/21/19 22:30 02/25/19 05:48 Saline 0.9% IV 20 mls/hr .Q24H EVI Administration Insulin Aspart 0 unit 02/22/19 01:50 02/25/19 07:11 Novolog SQ Not Given ACHS REPLACED BY [facility] Protocol Insulin Detemir 20 unit 02/23/19 11:30 02/25/19 07:51 Levemir SQ 20 unit DAILY@0700 EVI Administration Magnesium Oxide 400 mg 02/22/19 21:00 02/24/19 22:00 Mag-Ox PO 400 mg HS EVI Administration Metformin HCl 500 mg 02/22/19 09:00 02/25/19 07:51 Glucophage PO 500 mg TID EVI Administration Montelukast Sodium 10 mg 02/22/19 09:00 02/25/19 07:51 Singulair PO 10 mg DAILY EVI Administration Naloxone HCl 0.2 mg 02/21/19 22:21 Narcan IV Q2M PRN Opioid Reversal Mirabegron [ 50 mg 02/21/19 22:22 Myrbetriq] 50 Mg PO DAILY PRN bladder leakage Pantoprazole Sodium 40 mg 02/22/19 07:30 02/25/19 07:51 Protonix PO 40 mg DAILY@0730 EVI Administration Prednisone 20 mg 02/22/19 11:00 02/25/19 07:52 PO 20 mg DAILY EVI Administration Tramadol HCl 50 mg 02/21/19 22:22 Ultram PO DAILY PRN Pain Trazodone HCl 50 mg 02/22/19 21:00 02/24/19 22:00 Desyrel PO 50 mg HS EVI Administration Trimethoprim/Sulfamethoxazole 1 each 02/24/19 21:00 02/25/19 07:54 Bactrim Ds PO 1 each BID EVI Administration Intake and Output 02/24/19 02/25/19 02/25/19 22:59 06:59 14:59 Intake Total 50 160 Balance 50 160 Intake: Intake, IV Titration 50 160 Amount Sodium Chloride 0.9% 1, 50 160 000 ml @ 20 mls/hr IV . Q24H REPLACED BY [facility] Rx#:[id number] Other: Voiding Method Toilet Toilet # Voids 1 1 Weight 82 kg 02/25/19 07:05 02/25/19 07:05
[2019-02-25 11:35] LABS: Glucose,Whole Blood 154 mg/dL (75-99)
--- NOTE | 2019-02-25 12:01 | ECHOF ---
Referral Reason:weakness MEASUREMENTS -------- HEIGHT: 149.9 cm WEIGHT: 81.6 kg BP: 110/69 RVIDd: 2.6 cm (< 3.3) IVSd: 1.5 cm (0.6 - 1.1) LVIDd: 3.5 cm (3.9 - 5.3) LVPWd: 1.4 cm (0.6 - 1.1) IVSs: 1.9 cm LVIDs: 2.2 cm LVPWs: 1.6 cm LA Diam: 3.6 cm (2.7 - 3.8) LAESV Index (A-L): 28.68 ml/m Ao Diam: 3.2 cm (2.0 - 3.7) AV Cusp: 1.9 cm (1.5 - 2.6) MV EXCURSION: 11.800 mm (> 18.000) MV EF SLOPE: 11 mm/s (70 - 150) EPSS: 0.7 cm MV E Theo: 1.01 m/s MV DecT: 543 ms MV A Theo: 1.14 m/s MV E/A Ratio: 0.88 FINDINGS -------- Sinus rhythm. This was a technically adequate study. The left ventricular size is normal. There is moderate concentric left ventricular hypertrophy. O verall left ventricular systolic function is normal with, an EF between 60 - 65 %. The right ventricle is normal in size. Normal LA size by volume 22+/-6 ml/m2. The right atrium is normal in size. Interatrial and interventricular septum intact. Aortic valve is trileaflet and is mildly thickened. The mitral valve leaflets are mildly thickened. Moderate mitral annular calcification present. Mi ld mitral regurgitation is present. The peak and mean MV gradients are 5.36mmHg 3.32mmHg as measur ed by doppler. Mild mitral stenosis. The tricuspid valve appears structurally normal. Trace/mild (physiologic) pulmonic regurgitation. The aortic root size is normal. IVC Not well visulized. There is no pericardial effusion. CONCLUSIONS -------- 1. Sinus rhythm. 2. This was a technically adequate study. 3. The left ventricular size is normal. 4. There is moderate concentric left ventricular hypertrophy. 5. Overall left ventricular systolic function is normal with, an EF between 60 - 65 %. 6. The right ventricle is normal in size. 7. Normal LA size by volume 22+/-6 ml/m2. 8. The right atrium is normal in size. 9. Interatrial and interventricular septum intact. 10. Aortic valve is trileaflet and is mildly thickened. 11. The mitral valve leaflets are mildly thickened. 12. Moderate mitral annular calcification present. 13. Mild mitral regurgitation is present. 14. The peak and mean MV gradients are 5.36mmHg 3.32mmHg as measured by doppler. 15. Mild mitral stenosis. 16. The tricuspid valve appears structurally normal. 17. Trace/mild (physiologic) pulmonic regurgitation. 18. The aortic root size is normal. 19. IVC Not well visulized. 20. There is no pericardial effusion. INTERPRETIVE PROGRAM COORDINATOR: Nabila Curiel RDCS
--- NOTE | 2019-02-25 13:33 | P.PN ---
Progress Note - Text Progress Note Date: 02/25/19 SUBJECTIVE/INTERVAL EVENTS: No acute overnight events. IR states patient needs to be off Eliquis for 48 hours before getting IR-guided LP. PHYSICAL EXAMINATION: VITAL SIGNS: Temperature 98.1 pulse rate 87 respiratory rate 18 blood pressure 110/69 O2 saturation 93% on room air GEN.: NAD, pleasant and cooperative HEENT: NCAT, sclera without icterus NECK: Supple SKIN AND EXTREMITIES: Warm to touch, mild pitting edema in both lower extremities NEURO: MENTAL STATUS: Patient alert and oriented to self, place, time. Able to name the current president. Speech fluent, able to name and repeat, following all commands readily. No right and left disorientation CRANIAL NERVES II THROUGH XII: II: Pupils are equal and reactive to light symmetrically. Visual field deficit in bottom half in both eyes III, IV, : No ptosis. Extraocular movements full. No nystagmus. V: Facial sensation intact from V1-3. VII. No clear facial asymmetry. VIII: Hearing intact to finger rub bilaterally. IX, X: Symmetric palate elevation. XII: Shoulder shrug intact. XII: Tongue midline without fasciculation or atrophy. MOTOR: Normal bulk/tone. Some weakness in RUE (pt states she's had this weakness previously, thinks it could be from her arthritis, but denies pain with movement at this time). RUE deltoids/biceps/triceps 4-/5, b/l finger building surveyor 4/5, LUE 4+/5, b/l hip flexion/extension 1/5 b/l knee flexion/extension 4-/5 b/l plantarflexion/dorsiflexion 5/5 SENSORY: Intact to light touch in all 4 extremities. REFLEXES: 1+ throughout. Toes are downgoing. COORDINATION: Finger to nose intact. No dysmetria. GAIT: Patient is able to walk once she gets up, but the patient barely lifts her feet off the ground. Patient cannot stand from a sitting position DIAGNOSTIC TESTING: LABORATORY: WBC 5.3 hemoglobin 10.1 platelets 4 sodium 140 potassium 4.2 chloride 103 bicarb 33 BUN 33 cranial 0.02 glucose 170 LDH 1279 CK 3.3 IMAGING: CT head without contrast 02/22/2019: no acute hemorrhage, hydrocephalus or mass effect. Mild left mastoid effusion. ASSESSMENT: Ms. Castillo is an 78 year-old woman with multiple medical problems including atrial fibrillation, diastolic CHF, asthma, COPD, GERD, hyperlipidemia, hypertension, arthritis, migraines, Giant cell arteritis diagnosed in December 2018 currently on prednisone, anxiety and depression, presenting with bilateral lower extremities x2 weeks. Patient has been on steroids since December 2018 for giant cell arteritis, which could be caused acutely or chronically. 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 Also in the differential diagnosis is polymyositis. Patient with no recent sickness, and no typical ascending symptoms that we would see in guillain-barre syndrome or other demyelinating conditions. Patient also with no sensation deficit that's more than her usual. RECOMMENDATIONS: 1. CK, LDH (usually normal in steroid-induced myopathy, but elevated in this patient. ); will check ESR, CRP, LUX with reflex 2. IR-guided LP for CSF studies; will consider IVIG if it shows any indication of demyelination. 3. Patient will need EMG/NCS as outpatient for a more definite diagnosis. 4. 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 An increase in muscle strength can be observed within 3 to 4 weeks after discontinuation of the glucocorticoid. An adequate protein intake is helpful in preventing rapid acceleration of symptoms. 5. Physical therapy/occupational therapy 6. Neurology is not available over the weekend. If patient is still here on Thursday, Dr. Boyer will continue to follow this patient.
--- NOTE | 2019-02-25 16:39 | P.PN ---
Subjective Progress Note Date: 02/25/19 Caitlyn Castillo is an 78 yo F with PMH significant for disc disease s/p lumbar fusion, diastolic CHF, a fib, COPD, 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 Pt states she has had some degree of leg weakness at baseline for years and needed a lumbar surgery to decompress her nerve roots in the past. She recently went on a long car trip to [place] about 2 weeks ago and during that time began to experience significant leg swelling and progressive weakness. She states by the time she returned to [place] she was completely unable to walk and could only shuffle her legs. Pt states that she has also noticed facial swelling ever since starting treatment for temporal arteritis. She has been on 40 mg daily prednisone for approx 1 month now and total duration of steroid treatment approx 3 months. In the ED her vitals were stable, CXR and venous doppler negative, CT head negative for acute process. Currently she complains of severe weakness in bed unable to lift her legs against gravity. 02/23/2019 standing up at bedside with walker this morning, asymptomatic. Denies nausea, vomiting or diarrhea. Denies lightheadedness, dizziness or focal deficits. Scheduled for lumbar puncture with interventional radiology today, as per neurology. VSS. Evaluated by speech therapy regarding complaints of difficulty swallowing, no impairment noted. Consuming 75-100% of meals, blood sugars running in the 200s today, and was up to 330 last night, in a patient on steroids. Creatinine 1.02. Denies chest pain, palpitations or shortness of breath.VSS, maintaining O2 sats in the 90s on room air. 02/24/2019. Eliquis on hold, lumbar puncture pending. Increasing mobility.VSS, afebrile. Long-acting insulin added to med regime yesterday with blood sugars controlled. EKG from February 21 reporting sinus rhythm, possible anterior infarct, age undetermined. Neurology's recommendations noted and appreciated. Denies lightheadedness dizziness or focal deficits. Denies chest pain, palpit ations or shortness of breath. 02/25/2019 interventional radiologist requiring Eliquis be on hold for 48 hours prior to procedure, therefore lumbar puncture placed on hold for today. Rescheduled for Thursday. Mild troponin elevation. Evaluated by cardiology, echo ordered, loop recorder discussed.VSS. Objective - Vital Signs Vital signs: Vital Signs Temp 98.1 F 02/25/19 04:59 Pulse 87 02/25/19 04:59 Resp 18 02/25/19 04:59 BP 110/69 02/25/19 04:59 Pulse Ox 93 L 02/25/19 04:59 Intake & Output 02/24/19 02/25/19 02/25/19 18:59 06:59 18:59 Intake Total 210 Balance 210 Weight 82 kg Intake: Intake, IV Titration 210 Amount Sodium Chloride 0.9% 1, 210 000 ml @ 20 mls/hr IV . Q24H [facility] Rx#:[id number] Other: Voiding Method Toilet Toilet # Voids 1 1 - Exam VITAL SIGNS: As above General: Lying in bed, no acute distress. Eyes: PERRL, EOMI, conjunctiva normal. Peripheral vision limited HENT: normocephalic, mucus membranes moist Neck: supple, no JVD Lungs: normal respiratory effort, no wheezes or rales CV: Regular rate and rhythm, no murmur. Peripheral pulses 2+ Abdomen: soft, nondistended, no organomegaly Extremities: 2+ edema bilateral LE. Str 4/5 bilateral LE to hip flexors. 4/5 to plantarflexion and dorsiflexion Skin: warm and dry. Neuro: A&Ox3, normal mood and affect. CN II-XII intact. Microbiology 02/21/19 17:27 Urine,Voided Urine Culture - Final Enterobacter aerogenes - Labs CBC & Chem 7: 02/25/19 07:05 02/25/19 07:05 Labs: Abnormal Lab Results - Last 24 Hours (Table) 02/24/19 02/24/19 02/24/19 Range/Units 11:21 13:25 17:03 RBC (3.80-5.40) m/uL Hgb (11.4-16.0) gm/dL Hct (34.0-46.0) % RDW (11.5-15.5) % Plt Count (150-450) k/uL Lymphocytes # (1.0-4.8) k/uL Chloride (98-107) mmol/L Carbon Dioxide (22-30) mmol/L BUN (7-17) mg/dL POC Glucose (mg/dL) 122 H 263 H (75-99) mg/dL Magnesium (1.6-2.3) mg/dL Troponin I 0.064 H* (0.000-0.034) ng/mL Total Protein (6.3-8.2) g/dL Albumin (3.5-5.0) g/dL 02/24/19 02/25/19 02/25/19 Range/Units 20:38 07:05 07:05 RBC 3.25 L (3.80-5.40) m/uL Hgb 10.4 L (11.4-16.0) gm/dL Hct 31.7 L (34.0-46.0) % RDW 16.4 H (11.5-15.5) % Plt Count 129 L (150-450) k/uL Lymphocytes # 0.9 L (1.0-4.8) k/uL Chloride 96 L (98-107) mmol/L Carbon Dioxide 36 H (22-30) mmol/L BUN 37 H (7-17) mg/dL POC Glucose (mg/dL) 266 H (75-99) mg/dL Magnesium 1.4 L (1.6-2.3) mg/dL Troponin I (0.000-0.034) ng/mL Total Protein 4.9 L (6.3-8.2) g/dL Albumin 2.8 L (3.5-5.0) g/dL Assessment and Plan Assessment: (1) Paresis of lower extremity, 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 Current Visit: Yes Status: Acute Code(s): G83.10 - MONOPLEGIA OF LOWER LIMB AFFECTING UNSPECIFIED SIDE SNOMED Code(s): 501888352 (2) Diastolic CHF Current Visit: Yes Status: Acute Code(s): I50.30 - UNSPECIFIED DIASTOLIC (CONGESTIVE) HEART FAILURE SNOMED Code(s): 563331881 (3) S/P lumbar fusion Current Visit: Yes Status: Acute Code(s): Z98.1 - ARTHRODESIS STATUS SNOMED Code(s): 43002774018173 (4) Bilateral edema of lower extremity Current Visit: Yes Status: Acute Code(s): R60.0 - LOCALIZED EDEMA SNOMED Code(s): 597071204 (5) Temporal arteritis Current Visit: Yes Status: Acute Code(s): M31.6 - OTHER GIANT CELL ARTERITIS SNOMED Code(s): 529544287 (6) Weakness Current Visit: Yes Status: Acute Code(s): R53.1 - WEAKNESS SNOMED Code(s): 62874706 (7) acute UTI with Enrerobacter aerogenesis Plan: Continue current medication regime ,monitoring and symptomatic treatment. Increase protein intake.Continue on Bactrim DS for acute UTI. Continue holding anticoagulation, Lumbar puncture rescheduled for Thursday. Echo pending .Close monitoring of Accu-Cheks.PT/OT. The impression and plan of care has been dictated as directed. : I performed a history and examination of this patient, discussed the same with the dictator. I agree with the dictator's note ,documented as a scribe. Any additional findings or plans will be noted.
[2019-02-25 17:13] LABS: Glucose,Whole Blood 246 mg/dL (75-99)
[2019-02-25 20:13] LABS: Glucose,Whole Blood 228 mg/dL (75-99)
[2019-02-25] MEDS: traZODone HCL 50 MG TAB PO SCH (21:49)
[2019-02-25] MEDS: FAMOTIDINE 20 MG TAB PO SCH (21:49)
[2019-02-25] MEDS: MAGNESIUM OXIDE 400 MG TAB PO SCH (21:49)
[2019-02-26] MEDS: SODIUM CHLORIDE 0.9% 1,000 ML IV SCH ×2 (07:14→21:57)
[2019-02-26 08:09] LABS: Glucose,Whole Blood 98 mg/dL (75-99)
[2019-02-26] MEDS: INSULIN ASPART (NovoLOG) 100 UNIT/ML VIAL SQ SCH ×4 (08:15→21:57)
[2019-02-26] MEDS: INSULIN DETEMIR (LEVEMIR) 100 UNIT/ML SYR SQ SCH (08:15)
[2019-02-26] MEDS: predniSONE 20 MG TAB PO SCH (08:16)
[2019-02-26] MEDS: FUROSEMIDE 40 MG TAB PO SCH (08:16)
[2019-02-26] MEDS: ALLOPURINOL 300 MG TAB PO SCH (08:16)
[2019-02-26] MEDS: PANTOPRAZOLE 40 MG TABLET PO SCH (08:16)
[2019-02-26] MEDS: SULFAMETHOX-TMP 800-160MG 1 EACH TAB PO SCH ×2 (08:16→21:57)
[2019-02-26] MEDS: DOCUSATE 100 MG CAP PO SCH ×2 (08:16→21:57)
[2019-02-26] MEDS: AMIODARONE 200 MG TAB PO SCH (08:16)
[2019-02-26] MEDS: CYANOCOBALAMIN 500 MCG TAB PO SCH (08:16)
[2019-02-26] MEDS: metFORMIN 500 MG TAB PO SCH ×3 (08:16→21:57)
[2019-02-26] MEDS: MONTELUKAST 10 MG TAB PO SCH (08:16)
[2019-02-26] MEDS: DULoxetine HCL 60 MG CAPSULE.DR PO SCH (08:16)
[2019-02-26 11:15] LABS: Glucose,Whole Blood 114 mg/dL (75-99)
[2019-02-26 17:13] LABS: Glucose,Whole Blood 251 mg/dL (75-99)
--- NOTE | 2019-02-26 19:28 | P.PN ---
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 Pt states she has had some degree of leg weakness at baseline for years and needed a lumbar surgery to decompress her nerve roots in the past. She recently went on a long car trip to [place] about 2 weeks ago and during that time began to experience significant leg swelling and progressive weakness. She states by the time she returned to [place] she was completely unable to walk and could only shuffle her legs. Pt states that she has also noticed facial swelling ever since starting treatment for temporal arteritis. She has been on 40 mg daily prednisone for approx 1 month now and total duration of steroid treatment approx 3 months. In the ED her vitals were stable, CXR and venous doppler negative, CT head negative for acute process. Currently she complains of severe weakness in bed unable to lift her legs against gravity. 02/23/2019 standing up at bedside with walker this morning, asymptomatic. Denies nausea, vomiting or diarrhea. Denies lightheadedness, dizziness or focal deficits. Scheduled for lumbar puncture with interventional radiology today, as per neurology. VSS. Evaluated by speech therapy regarding complaints of difficulty swallowing, no impairment noted. Consuming 75-100% of meals, blood sugars running in the 200s today, and was up to 330 last night, in a patient on steroids. Creatinine 1.02. Denies chest pain, palpitations or shortness of breath.VSS, maintaining O2 sats in the 90s on room air. 02/24/2019. Eliquis on hold, lumbar puncture pending. Increasing mobility.VSS, afebrile. Long-acting insulin added to med regime yesterday with blood sugars controlled. EKG from February 21 reporting sinus rhythm, possible anterior infarct, age undetermined. Neurology's recommendations noted and appreciated. Denies lightheadedness dizziness or focal deficits. Denies chest pain, palpit ations or shortness of breath. 02/25/2019 interventional radiologist requiing Eliquis be on hold for 48 hours prior to procedure, therefore lumbar puncture placed on hold for today. Rescheduled for Thursday. Mild troponin elevation. Evaluated by cardiology, echo ordered, loop recorder discussed.VSS. 02/26/2019. Pt remains stable, upright in bed, feels her strength is the same or maybe improved from yesterday. Denies chest pain, shortness of breath. Objective - Vital Signs Vital signs: Vital Signs Temp 98.0 F 02/26/19 11:07 Pulse 54 L 02/26/19 11:07 Resp 20 02/26/19 11:07 BP 164/79 02/26/19 11:07 Pulse Ox 97 02/26/19 11:07 Intake & Output 02/26/19 02/26/19 02/27/19 06:59 18:59 06:59 Intake Total 160 Balance 160 Weight 82.5 kg Intake: IV 160 Sodium Chloride 0.9% 1, 160 000 ml @ 20 mls/hr IV . Q24H [facility] Rx#:[id number] Other: Voiding Method Toilet Toilet # Voids 2 1 - Exam General: Lying in bed, no acute distress. Eyes: PERRL, EOMI, conjunctiva normal. Peripheral vision limited HENT: normocephalic, mucus membranes moist Neck: supple, no JVD Lungs: normal respiratory effort, no wheezes or rales CV: Regular rate and rhythm, no murmur. Peripheral pulses 2+ Abdomen: soft, nondistended, no organomegaly Extremities: 2+ edema bilateral LE. Str 4/5 bilateral LE to hip flexors. 4/5 to plantarflexion and dorsiflexion Skin: warm and dry. Neuro: A&Ox3, normal mood and affect. CN II-XII intact. - Labs CBC & Chem 7: 02/25/19 07:05 02/25/19 07:05 Labs: Abnormal Lab Results - Last 24 Hours (Table) 02/25/19 02/26/19 02/26/19 Range/Units 20:11 06:28 06:28 ESR 40 H (0-20) mm/hr POC Glucose (mg/dL) 228 H (75-99) mg/dL C-Reactive Protein 49.3 H (<10.0) mg/L 02/26/19 02/26/19 Range/Units 11:13 17:11 ESR (0-20) mm/hr POC Glucose (mg/dL) 114 H 251 H (75-99) mg/dL C-Reactive Protein (<10.0) mg/L Assessment and Plan (1) Paresis of lower extremity Current Visit: Yes Status: Acute Code(s): G83.10 - MONOPLEGIA OF LOWER LIMB AFFECTING UNSPECIFIED SIDE SNOMED Code(s): 878736855 (2) Diastolic CHF Current Visit: Yes Status: Acute Code(s): I50.30 - UNSPECIFIED DIASTOLIC (CONGESTIVE) HEART FAILURE SNOMED Code(s): 808386527 (3) S/P lumbar fusion Current Visit: Yes Status: Acute Code(s): Z98.1 - ARTHRODESIS STATUS SNOMED Code(s): 95507515786805 (4) Bilateral edema of lower extremity Current Visit: Yes Status: Acute Code(s): R60.0 - LOCALIZED EDEMA SNOMED Code(s): 193392411 (5) Temporal arteritis Current Visit: Yes Status: Acute Code(s): M31.6 - OTHER GIANT CELL ARTERITIS SNOMED Code(s): 074923764 (6) Weakness Current Visit: Yes Status: Acute Code(s): R53.1 - WEAKNESS SNOMED Code(s): 22496157 Plan: Continue current medication, monitoring, steroid at 20 mg daily, await LP on Thursday. Cardiology following and Echo with EF 60%.
[2019-02-26 21:15] LABS: Glucose,Whole Blood 202 mg/dL (75-99)
[2019-02-26] MEDS: traZODone HCL 50 MG TAB PO SCH (21:57)
[2019-02-26] MEDS: FAMOTIDINE 20 MG TAB PO SCH (21:57)
[2019-02-26] MEDS: MAGNESIUM OXIDE 400 MG TAB PO SCH (21:57)
[2019-02-27 06:58] LABS: Glucose,Whole Blood 109 mg/dL (75-99)
[2019-02-27] MEDS: INSULIN ASPART (NovoLOG) 100 UNIT/ML VIAL SQ SCH ×4 (07:04→20:45)
[2019-02-27] MEDS: PANTOPRAZOLE 40 MG TABLET PO SCH (08:23)
[2019-02-27] MEDS: INSULIN DETEMIR (LEVEMIR) 100 UNIT/ML SYR SQ SCH (08:23)
[2019-02-27] MEDS: AMIODARONE 200 MG TAB PO SCH (08:24)
[2019-02-27] MEDS: CYANOCOBALAMIN 500 MCG TAB PO SCH (08:24)
[2019-02-27] MEDS: DOCUSATE 100 MG CAP PO SCH ×2 (08:24→20:45)
[2019-02-27] MEDS: ALLOPURINOL 300 MG TAB PO SCH (08:24)
[2019-02-27] MEDS: SULFAMETHOX-TMP 800-160MG 1 EACH TAB PO SCH ×2 (08:25→20:45)
[2019-02-27] MEDS: FUROSEMIDE 40 MG TAB PO SCH (08:25)
[2019-02-27] MEDS: DULoxetine HCL 60 MG CAPSULE.DR PO SCH (08:25)
[2019-02-27] MEDS: predniSONE 20 MG TAB PO SCH (08:25)
[2019-02-27] MEDS: MONTELUKAST 10 MG TAB PO SCH (08:25)
[2019-02-27] MEDS: metFORMIN 500 MG TAB PO SCH ×3 (08:25→22:39)
[2019-02-27 11:07] LABS: Glucose,Whole Blood 138 mg/dL (75-99)
[2019-02-27] MEDS ORDERED: FUROSEMIDE 10 MG/ML 4 ML VIAL IV STA (11:07)
--- NOTE | 2019-02-27 11:07 | P.PN ---
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 Pt states she has had some degree of leg weakness at baseline for years and needed a lumbar surgery to decompress her nerve roots in the past. She recently went on a long car trip to [place] about 2 weeks ago and during that time began to experience significant leg swelling and progressive weakness. She states by the time she returned to [place] she was completely unable to walk and could only shuffle her legs. Pt states that she has also noticed facial swelling ever since starting treatment for temporal arteritis. She has been on 40 mg daily prednisone for approx 1 month now and total duration of steroid treatment approx 3 months. In the ED her vitals were stable, CXR and venous doppler negative, CT head negative for acute process. Currently she complains of severe weakness in bed unable to lift her legs against gravity. 02/23/2019 standing up at bedside with walker this morning, asymptomatic. Denies nausea, vomiting or diarrhea. Denies lightheadedness, dizziness or focal deficits. Scheduled for lumbar puncture with interventional radiology today, as per neurology. VSS. Evaluated by speech therapy regarding complaints of difficulty swallowing, no impairment noted. Consuming 75-100% of meals, blood sugars running in the 200s today, and was up to 330 last night, in a patient on steroids. Creatinine 1.02. Denies chest pain, palpitations or shortness of breath.VSS, maintaining O2 sats in the 90s on room air. 02/24/2019. Eliquis on hold, lumbar puncture pending. Increasing mobility.VSS, afebrile. Long-acting insulin added to med regime yesterday with blood sugars controlled. EKG from February 21 reporting sinus rhythm, possible anterior infarct, age undetermined. Neurology's recommendations noted and appreciated. Denies lightheadedness dizziness or focal deficits. Denies chest pain, palpit ations or shortness of breath. 02/25/2019 interventional radiologist requiing Eliquis be on hold for 48 hours prior to procedure, therefore lumbar puncture placed on hold for today. Rescheduled for Thursday. Mild troponin elevation. Evaluated by cardiology, echo ordered, loop recorder discussed.VSS. 02/26/2019. Pt remains stable, upright in bed, feels her strength is the same or maybe improved from yesterday. Denies chest pain, shortness of breath. 02/27. She remains stable today, was able to ambulate with PT using a rolling walker to bathroom and in riley. Did feel weak but strength improving. No change in vision. Denies chest pain, shortness of breath. Awaiting LP on Thursday. Objective - Vital Signs Vital signs: Vital Signs Temp 98.4 F 02/27/19 04:46 Pulse 83 02/27/19 04:46 Resp 16 02/27/19 04:46 BP 100/61 02/27/19 04:46 Pulse Ox 92 L 02/27/19 04:46 Intake & Output 02/26/19 02/27/19 02/27/19 18:59 06:59 18:59 Intake Total 550 Balance 550 Weight 83 kg Intake: Oral 550 Other: Voiding Method Toilet Toilet Toilet # Voids 1 1 - Exam General: Lying in bed, no acute distress. Eyes: PERRL, EOMI, conjunctiva normal. Peripheral vision limited HENT: normocephalic, mucus membranes moist Neck: supple, no JVD Lungs: normal respiratory effort, no wheezes or rales CV: Regular rate and rhythm, no murmur. Peripheral pulses 2+ Abdomen: soft, nondistended, no organomegaly Extremities: 2+ edema bilateral LE. Str 4/5 bilateral LE to hip flexors. 4/5 to plantarflexion and dorsiflexion Skin: warm and dry. Neuro: A&Ox3, normal mood and affect. CN II-XII intact. - Labs CBC & Chem 7: 02/25/19 07:05 02/25/19 07:05 Labs: Abnormal Lab Results - Last 24 Hours (Table) 02/26/19 02/26/19 02/26/19 Range/Units 11:13 17:11 21:10 POC Glucose (mg/dL) 114 H 251 H 202 H (75-99) mg/dL 02/27/19 Range/Units 06:45 POC Glucose (mg/dL) 109 H (75-99) mg/dL Assessment and Plan (1) Paresis of lower extremity Current Visit: Yes Status: Acute Code(s): G83.10 - MONOPLEGIA OF LOWER LIMB AFFECTING UNSPECIFIED SIDE SNOMED Code(s): 048722628 (2) Diastolic CHF Current Visit: Yes Status: Acute Code(s): I50.30 - UNSPECIFIED DIASTOLIC (CONGESTIVE) HEART FAILURE SNOMED Code(s): 618168701 (3) S/P lumbar fusion Current Visit: Yes Status: Acute Code(s): Z98.1 - ARTHRODESIS STATUS SNOMED Code(s): 44894067570596 (4) Bilateral edema of lower extremity Current Visit: Yes Status: Acute Code(s): R60.0 - LOCALIZED EDEMA SNOMED Code(s): 775330311 (5) Temporal arteritis Current Visit: Yes Status: Acute Code(s): M31.6 - OTHER GIANT CELL ARTERITIS SNOMED Code(s): 785024042 (6) Weakness Current Visit: Yes Status: Acute Code(s): R53.1 - WEAKNESS SNOMED Code(s): 10495845 Plan: Continue current medication, monitoring, steroid at 20 mg daily, await LP on Thursday. Cardiology following and Echo with EF 60%. LE swelling slightly increased today, will give one time lasix 40 mg IVP.
[2019-02-27 17:11] LABS: Glucose,Whole Blood 169 mg/dL (75-99)
[2019-02-27 20:09] LABS: Glucose,Whole Blood 334 mg/dL (75-99)
--- NOTE | 2019-02-27 20:25 | P.PN ---
Subjective Progress Note Date: 02/27/19 Principal diagnosis: Muscle weakness Nyla continues to be held in preparation for LP in am. Patient states she gets so weak and tired that she has trouble opening her eyelids if she remains idle. However, she denies worsening SOB (she does have COPD). Her GCA diagnosis was made in 12/2018, and she has been on high-dose glucocorticoid since. Objective - Vital Signs Vital signs: Vital Signs Temp 97.9 F 02/27/19 11:37 Pulse 98 02/27/19 11:37 Resp 16 02/27/19 11:37 BP 129/79 02/27/19 11:37 Pulse Ox 96 02/27/19 11:37 Intake & Output 02/27/19 02/27/19 02/28/19 06:59 18:59 06:59 Intake Total 550 Balance 550 Weight 83 kg Intake: Oral 550 Other: Voiding Method Toilet Toilet # Voids 1 3 - Exam Gen NAD Pleasant and cooperative MS A+Ox4 Normal speech Able to articulate a detailed medical history and asks t houghtful questions CN II-XII grossly intact no nystagmus I do not detect any ptosis or Teo's Motor Normal bulk/tone Bilateral arm/leg drift Strength 3/5 deltoid 4-/5 biceps/triceps 5/5 security officers and guards 2/5 hip flexion/extension 4-/5 knee flexion/extension 5/5 foot dorsi/plantarflexion Sens Intact to LT x4 Negative SLR bilaterally Coord No dysmeria on FTN bilaterally DTRs 1+/4 sym throughout Toes downgoing bilaterally no ankle clonus Gait Deferred - Labs CBC & Chem 7: 02/25/19 07:05 02/25/19 07:05 Labs: Abnormal Lab Results - Last 24 Hours (Table) 02/26/19 02/27/19 02/27/19 Range/Units 21:10 06:45 11:05 POC Glucose (mg/dL) 202 H 109 H 138 H (75-99) mg/dL 02/27/19 Range/Units 17:09 POC Glucose (mg/dL) 169 H (75-99) mg/dL CRP 49.3 ESR 40 LDH 1279 CKMB 3.3 B12 >80930 Folate 23.3 Assessment and Plan Assessment: Proximal BU&LE weakness, query myopathy, possibly steroid-induced r/o other PNS conditions Plan: -CK; CKMB was elevated -ESR and CRP elevated especially the latter; await LUX with reflex -LP to look for cytoalbuminologic dissociation suggestive of GBS or other acute inflammatory neuropathy for which may be amenable to acute treatment such as IVIg -Consider paraneoplastic panel to [facility] to r/o paraneoplastic PN if above work-up unrevealing -Decrease steroid if medically safe from rheum standpoint -Will definitely need outpatient neuro follow-up and EMG/NCS -PT/OT/SP/rehab -Long discussion held with patient regarding current neurological differential considerations and next steps in work-up and potential treatment options. All questions answered. Thank you again for this consultation. Please call with ?. Time with Patient: Greater than 30 (Time spent in direct patient care, greater than 50% of which was spent in [id number] counseling coordination of care: 35 minutes)
[2019-02-27] MEDS: MAGNESIUM OXIDE 400 MG TAB PO SCH (20:45)
[2019-02-27] MEDS: FAMOTIDINE 20 MG TAB PO SCH (20:45)
[2019-02-27] MEDS: traZODone HCL 50 MG TAB PO SCH (20:45)
[2019-02-28] MEDS: SODIUM CHLORIDE 0.9% 1,000 ML IV SCH ×2 (00:05→20:46)
[2019-02-28 06:54] LABS: INR 0.9 (<1.2); Prothrombin Time 9.7 sec (9.0-12.0)
[2019-02-28 07:06] LABS: Glucose,Whole Blood 163 mg/dL (75-99)
[2019-02-28] MEDS: predniSONE 20 MG TAB PO SCH (07:43)
[2019-02-28] MEDS: DOCUSATE 100 MG CAP PO SCH ×2 (07:43→20:01)
[2019-02-28] MEDS: ALLOPURINOL 300 MG TAB PO SCH (07:43)
[2019-02-28] MEDS: FUROSEMIDE 40 MG TAB PO SCH (07:43)
[2019-02-28] MEDS: PANTOPRAZOLE 40 MG TABLET PO SCH (07:43)
[2019-02-28] MEDS: AMIODARONE 200 MG TAB PO SCH (07:43)
[2019-02-28] MEDS: CYANOCOBALAMIN 500 MCG TAB PO SCH (07:44)
[2019-02-28] MEDS: MONTELUKAST 10 MG TAB PO SCH (07:44)
[2019-02-28] MEDS: metFORMIN 500 MG TAB PO SCH ×3 (07:44→21:51)
[2019-02-28] MEDS: INSULIN ASPART (NovoLOG) 100 UNIT/ML VIAL SQ SCH ×4 (07:45→20:01)
[2019-02-28] MEDS: DULoxetine HCL 60 MG CAPSULE.DR PO SCH (07:45)
[2019-02-28] MEDS: INSULIN DETEMIR (LEVEMIR) 100 UNIT/ML SYR SQ SCH (07:45)
[2019-02-28] MEDS: SULFAMETHOX-TMP 800-160MG 1 EACH TAB PO SCH ×2 (07:50→20:01)
--- NOTE | 2019-02-28 11:00 | P.PN ---
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 Pt states she has had some degree of leg weakness at baseline for years and needed a lumbar surgery to decompress her nerve roots in the past. She recently went on a long car trip to [place] about 2 weeks ago and during that time began to experience significant leg swelling and progressive weakness. She states by the time she returned to [place] she was completely unable to walk and could only shuffle her legs. Pt states that she has also noticed facial swelling ever since starting treatment for temporal arteritis. She has been on 40 mg daily prednisone for approx 1 month now and total duration of steroid treatment approx 3 months. In the ED her vitals were stable, CXR and venous doppler negative, CT head negative for acute process. Currently she complains of severe weakness in bed unable to lift her legs against gravity. 02/23/2019 standing up at bedside with walker this morning, asymptomatic. Denies nausea, vomiting or diarrhea. Denies lightheadedness, dizziness or focal deficits. Scheduled for lumbar puncture with interventional radiology today, as per neurology. VSS. Evaluated by speech therapy regarding complaints of difficulty swallowing, no impairment noted. Consuming 75-100% of meals, blood sugars running in the 200s today, and was up to 330 last night, in a patient on steroids. Creatinine 1.02. Denies chest pain, palpitations or shortness of breath.VSS, maintaining O2 sats in the 90s on room air. 02/24/2019. Eliquis on hold, lumbar puncture pending. Increasing mobility.VSS, afebrile. Long-acting insulin added to med regime yesterday with blood sugars controlled. EKG from February 21 reporting sinus rhythm, possible anterior infarct, age undetermined. Neurology's recommendations noted and appreciated. Denies lightheadedness dizziness or focal deficits. Denies chest pain, palpit ations or shortness of breath. 02/25/2019 interventional radiologist requiring Eliquis be on hold for 48 hours prior to procedure, therefore lumbar puncture placed on hold for today. Rescheduled for Thursday. Mild troponin elevation. Evaluated by cardiology, echo ordered, loop recorder discussed.VSS. 02/26/2019. Pt remains stable, upright in bed, feels her strength is the same or maybe improved from yesterday. Denies chest pain, shortness of breath. 02/27. She remains stable today, was able to ambulate with PT using a rolling walker to bathroom and in riley. Did feel weak but strength improving. No change in vision. Denies chest pain, shortness of breath. Awaiting LP on Thursday. 02/28/2019 reporting that she is sleeping longer periods than normal,,,,,, usually sleeps 2hr increments;falling asleep sitting in chair. No change in vision. Strength improving. Vital signs stable. Denies chest pain, palpitations or shortness of breath. Scheduled for LP today. Objective - Vital Signs Vital signs: Vital Signs Temp 98.3 F 02/28/19 05:00 Pulse 89 02/28/19 05:00 Resp 16 02/28/19 05:00 BP 96/59 02/28/19 05:00 Pulse Ox 92 L 02/28/19 05:00 Intake & Output 02/27/19 02/28/19 02/28/19 18:59 06:59 18:59 Intake Total 1430 Balance 1430 Weight 80.5 kg Intake: Oral 1430 Other: Voiding Method Toilet Toilet Incontinent # Voids 3 3 - Exam VITAL SIGNS: As above General: Sitting up in bed, no acute distress. Eyes: PERRL, EOMI, conjunctiva normal. Peripheral vision limited HENT: normocephalic, mucus membranes moist Neck: supple, no JVD Lungs: normal respiratory effort, no wheezes or rales CV: Regular rate and rhythm, no murmur. Peripheral pulses 2+ Abdomen: soft, nondistended, no organomegaly Extremities: 2+ edema bilateral LE. Str 4/5 bilateral LE to hip flexors. 4/5 to plantarflexion and dorsiflexion Skin: warm and dry. Neuro: A&Ox3, normal mood and affect. CN II-XII intact. 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 Current Visit: Yes Status: Acute Code(s): G83.10 - MONOPLEGIA OF LOWER LIMB AFFECTING UNSPECIFIED SIDE SNOMED Code(s): 068269528 (2) Diastolic CHF, EF 60% Current Visit: Yes Status: Acute Code(s): I50.30 - UNSPECIFIED DIASTOLIC (CONGESTIVE) HEART FAILURE SNOMED Code(s): 585635848 (3) S/P lumbar fusion Current Visit: Yes Status: Acute Code(s): Z98.1 - ARTHRODESIS STATUS SNOMED Code(s): 19340231072472 (4) Bilateral edema of lower extremity Current Visit: Yes Status: Acute Code(s): R60.0 - LOCALIZED EDEMA SNOMED Code(s): 602093109 (5) Temporal arteritis Current Visit: Yes Status: Acute Code(s): M31.6 - OTHER GIANT CELL ARTERITIS SNOMED Code(s): 563019540 (6) Weakness Current Visit: Yes Status: Acute Code(s): R53.1 - WEAKNESS SNOMED Code(s): 76535627 (7) acute UTI with Enrerobacter aerogenesis Plan: Continue current medication regime ,monitoring and symptomatic treatment. Anticoagulation remain on hold, LP scheduled for today .Maintain Increased protein intake. PT/OT. The impression and plan of care has been dictated as directed. : I performed a history and examination of this patient, discussed the same with the dictator. I agree with the dictator's note ,documented as a scribe. Any additional findings or plans will be noted.
[2019-02-28 11:37] LABS: Glucose,Whole Blood 150 mg/dL (75-99)
[2019-02-28 13:35] VITALS: RESP 16
--- NOTE | 2019-02-28 13:41 | FL ---
Lumbar puncture and Myelogram. INDICATION: Weakness evaluate demyelinating disease FINDINGS: Fluoroscopy time: 8 seconds. Images obtained: 0. The procedure was explained to the patient. Risks complications and benefits were discussed. Alternat darius were discussed. All questions were answered. Informed consent was obtained. A timeout was performed. The L4-5 level was chosen for access. Maximum barrier sterile technique was utilized. The skin was cl eansed with chlorhexidine and the patient sterilely prepped and draped in the usual manner. The skin and deeper tissue was anesthetized with 1% Lidocaine. Utilizing a 18-gauge spinal needle the spinal c anal was accessed. Good CSF return was evident. 3 vials of 2 1/2 to 3 mL each were passively obtained and labeled with the patient's name for additional evaluation. CSF return diminished at this point a nd the procedure was terminated. The stylette was replaced and the needle withdrawn. The patient tolerated the procedure well. Discharge instructions were discussed with the patient. Th e patient was transferred to her room for additional evaluation. Findings: Findings are pending pathology results. IMPRESSIONS: 1. Successful Lumbar Puncture for CSF acquisition for analysis..
[2019-02-28 15:08] VITALS: BMI 35.8
[2019-02-28 15:15] LABS: Appearance,CSF Clear; CSF Tube Number 1; Nucleated Cells, CSF 0 u/L (0-5); Red Blood Cell, CSF Crenated 50 %; Red Blood Cell, CSF Fresh 50 %; Red Blood Cell,CSF 83 u/L (0-10)
[2019-02-28 15:35] LABS: Glucose,CSF 95 mg/dL (40-70); Total Protein,CSF 64 mg/dL (12-60)
[2019-02-28 17:19] LABS: Glucose,Whole Blood 181 mg/dL (75-99)
--- NOTE | 2019-02-28 17:26 | P.PN ---
Subjective Progress Note Date: 02/28/19 Principal diagnosis: Muscle weakness LP today. No new neuro c/o. Objective - Vital Signs Vital signs: Vital Signs Temp 98 F 02/28/19 12:15 Pulse 88 02/28/19 15:44 Resp 16 02/28/19 15:44 BP 151/74 02/28/19 13:15 Pulse Ox 95 02/28/19 13:15 Intake & Output 02/27/19 02/28/19 02/28/19 18:59 06:59 18:59 Intake Total 1430 650 Balance 1430 650 Weight 80.5 kg 80.5 kg Intake: Oral 1430 650 Other: Voiding Method Toilet Toilet Incontinent # Voids 3 3 3 - Exam Gen NAD Pleasant and cooperative MS A+Ox4 Normal speech CN II-XII grossly intact no nystagmus Motor Normal bulk/tone Bilateral arm/leg drift Strength 3/5 deltoid 4-/5 biceps/triceps 5/5 cloth mercerizer operator 2/5 hip flexion/extension 4-/5 knee flexion/extension 5/5 foot dorsi/plantarflexion Sens Intact to LT x4 Negative SLR bilaterally Coord No dysmeria on FTN bilaterally DTRs 1+/4 sym throughout Toes downgoing bilaterally no ankle clonus Gait Deferred - Labs CBC & Chem 7: 02/25/19 07:05 02/25/19 07:05 Labs: Abnormal Lab Results - Last 24 Hours (Table) 02/27/19 02/28/19 02/28/19 Range/Units 20:07 06:35 07:05 POC Glucose (mg/dL) 334 H 163 H (75-99) mg/dL Creatine Kinase <20 L (30-135) U/L CSF RBC (0-10) u/L CSF Glucose (40-70) mg/dL CSF Total Protein (12-60) mg/dL 02/28/19 02/28/19 02/28/19 Range/Units 11:35 13:00 17:17 POC Glucose (mg/dL) 150 H 181 H (75-99) mg/dL Creatine Kinase (30-135) U/L CSF RBC 83 H (0-10) u/L CSF Glucose 95 H (40-70) mg/dL CSF Total Protein 64 H (12-60) mg/dL Microbiology - Last 24 Hours (Table) 02/28/19 13:00 CSF Gram Stain - Preliminary Cerebral Spinal Fluid CSF Culture - Preliminary 02/28/19 CSF Protein 64 (reference range at this facility 16-60), glucose 95 RBC 83 WBC 0 G/S negative cytology pending Assessment and Plan Assessment: Proximal BU&LE weakness, query myopathy, possibly steroid-induced r/o other PNS conditions Plan: -CSF shows no WBC and borderline high protein. Overall picture not really consistent with a high level of CSF inflammation such as GBS. Would hold IVIg at this point -ESR and CRP remain elevated in the setting of GCA diagnosis -Decrease steroid per rheum -PT/OT/SP/rehab -Will definitely need outpatient neuro follow-up and EMG/NCS, and if clinically indicated, muscle biopsy -No further inpatient neuro recs at this time. Will revisit patient prn. Please call with new ?. Thank you again for this consultation. Time with Patient: Less than 30 (Time spent in direct patient care, greater than 50% of which was spent in [id number] counseling and coordination of care: 25 minutes)
[2019-02-28 19:46] LABS: Glucose,Whole Blood 190 mg/dL (75-99)
[2019-02-28] MEDS: MAGNESIUM OXIDE 400 MG TAB PO SCH (20:01)
[2019-02-28] MEDS: FAMOTIDINE 20 MG TAB PO SCH (20:01)
[2019-02-28] MEDS: traZODone HCL 50 MG TAB PO SCH (20:01)
[2019-03-01 05:09] VITALS: BP 109/61; PULSE 85; TEMP 97.6
[2019-03-01 06:52] LABS: Glucose,Whole Blood 87 mg/dL (75-99)
[2019-03-01] MEDS: INSULIN DETEMIR (LEVEMIR) 100 UNIT/ML SYR SQ SCH (07:52)
[2019-03-01] MEDS: INSULIN ASPART (NovoLOG) 100 UNIT/ML VIAL SQ SCH (07:52)
[2019-03-01] MEDS: SULFAMETHOX-TMP 800-160MG 1 EACH TAB PO SCH (07:53)
[2019-03-01] MEDS: PANTOPRAZOLE 40 MG TABLET PO SCH (07:53)
[2019-03-01] MEDS: metFORMIN 500 MG TAB PO SCH (07:53)
[2019-03-01] MEDS: AMIODARONE 200 MG TAB PO SCH (07:53)
[2019-03-01] MEDS: MONTELUKAST 10 MG TAB PO SCH (07:53)
[2019-03-01] MEDS: ALLOPURINOL 300 MG TAB PO SCH (07:53)
[2019-03-01] MEDS: FUROSEMIDE 40 MG TAB PO SCH (07:53)
[2019-03-01] MEDS: CYANOCOBALAMIN 500 MCG TAB PO SCH (07:53)
[2019-03-01] MEDS: DOCUSATE 100 MG CAP PO SCH (07:53)
[2019-03-01] MEDS: ERGOCALCIFEROL 50,000 UNIT CAP PO SCH (07:53)
[2019-03-01] MEDS: DULoxetine HCL 60 MG CAPSULE.DR PO SCH (07:53)
[2019-03-01] MEDS: predniSONE 20 MG TAB PO SCH (07:53)
--- NOTE | 2019-03-01 11:02 | P.DS ---
Providers Date of admission: 02/23/19 07:13 Expected date of discharge: 03/01/19 Attending physician: Xavier Fisher MD Consults: 02/22/19 10:25 Consult Physician Routine Consulting Provider: Miracle Gurrola Consult Reason/Comments: LE weakness/paralysis, hx spinal injury Do you want consulting provider notified?: Yes 02/24/19 14:56 Consult Physician Routine Consulting Provider: Kamari Montanez Consult Reason/Comments: elev. trops, abn. ekg, weakness Do you want consulting provider notified?: Yes Primary care physician: Florinda Flowers [facility] Course: Final Diagnoses: (1) Paresis of lower extremity, status post lumbar puncture, cytology pending. 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 Current Visit: Yes Status: Acute Code(s): G83.10 - MONOPLEGIA OF LOWER LIMB AFFECTING UNSPECIFIED SIDE SNOMED Code(s): 095966516 (2) Diastolic CHF, EF 60% Current Visit: Yes Status: Acute Code(s): I50.30 - UNSPECIFIED DIASTOLIC (CONGESTIVE) HEART FAILURE SNOMED Code(s): 635777325 (3) S/P lumbar fusion Current Visit: Yes Status: Acute Code(s): Z98.1 - ARTHRODESIS STATUS SNOMED Code(s): 57446870053787 (4) Bilateral edema of lower extremity Current Visit: Yes Status: Acute Code(s): R60.0 - LOCALIZED EDEMA SNOMED Code(s): 340468200 (5) Temporal arteritis Current Visit: Yes Status: Acute Code(s): M31.6 - OTHER GIANT CELL ARTERITIS SNOMED Code(s): 550227432 (6) Weakness Current Visit: Yes Status: Acute Code(s): R53.1 - WEAKNESS SNOMED Code(s): 86296881 (7) acute UTI with Enrerobacter aerogenesis, completed antibiotic therapy Hospital Course:Caitlyn Castillo is an 78 yo F with PMH significant for disc disease s/p lumbar fusion, diastolic CHF, a fib, COPD, 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 Pt states she has had some de gree of leg weakness at baseline for years and needed a lumbar surgery to decompress her nerve roots in the past. She recently went on a long car trip to [place] about 2 weeks ago and during that time began to experience significant leg swelling and progressive weakness. She states by the time she returned to [place] she was completely unable to walk and could only shuffle her legs. Pt states that she has also noticed facial swelling ever since starting treatment for temporal arteritis. She has been on 40 mg daily prednisone for approx 1 month now and total duration of steroid treatment approx 3 months. In the ED her vitals were stable, CXR and venous doppler negative, CT head negative for acute process. Currently she complains of severe weakness in bed unable to lift her legs against gravity. 02/23/2019 standing up at bedside with walker this morning, asymptomatic. Denies nausea, vomiting or diarrhea. Denies lightheadedness, dizziness or focal deficits. Scheduled for lumbar puncture with interventional radiology today, as per neurology. VSS. Evaluated by speech therapy regarding complaints of difficulty swallowing, no impairment noted. Consuming 75-100% of meals, blood sugars running in the 200s today, and was up to 330 last night, in a patient on steroids. Creatinine 1.02. Denies chest pain, palpitations or shortness of breath.VSS, maintaining O2 sats in the 90s on room air. 02/24/2019. Eliquis on hold, lumbar puncture pending. Increasing mobility.VSS, afebrile. Long-acting insulin added to med regime yesterday with blood sugars controlled. EKG from February 21 reporting sinus rhythm, possible anterior infarct, age undetermined. Neurology's recommendations noted and appreciated. Denies lightheadedness dizziness or focal deficits. Denies chest pain, palpitations or shortness of breath. 02/25/2019 interventional radiologist requiring Eliquis be on hold for 48 hours prior to procedure, therefore lumbar puncture placed on hold for today. Jagruti eduled for Thursday. Mild troponin elevation. Evaluated by cardiology, echo ordered, loop recorder discussed.VSS. 02/26/2019. Pt remains stable, upright in bed, feels her strength is the same or maybe improved from yesterday. Denies chest pain, shortness of breath. 02/27. She remains stable today, was able to ambulate with PT using a rolling walker to bathroom and in riley. Did feel weak but strength improving. No change in vision. Denies chest pain, shortness of breath. Awaiting LP on Thursday. 02/28/2019 reporting that she is sleeping longer periods than normal,,,,,, usually sleeps 2hr increments;falling asleep sitting in chair. No change in vision. Strength improving. Vital signs stable. Denies chest pain, palpitations or shortness of breath. Scheduled for LP today. Completed lumbar puncture yesterday, tolerated procedure well. Cytology pending. CSF shows no WBC and borderline high protein. Per neurology, not consistent with a high level of CSF inflammation such as GBS , no recommendations of IVIg at this time;ESR and CRP remain elevated in the setting of GCA diagnosis. Cleared by all consults for discharge. Evaluated by PT, recommending subacute rehab, patient declined. Significant clinical improvement. Patient is being discharged home in a stable condition with guarded prognosis. - Exam General: Alert & Oriented X 3, no acute distress. Lungs: normal respiratory effort, no wheezes or rales CV: Regular rate and rhythm, no murmur. Peripheral pulses 2+ Abdomen: soft, nondistended, no organomegaly Neuro: No focal deficits The impression and plan of care has been dictated as directed. : I performed a history and examination of this patient, discussed the same with the dictator. I agree with the dictator's note ,documented as a scribe. Any additional findings or plans will be noted. Time taken: 35 minutes Patient Condition at Discharge: Stable Plan - Discharge Summary Discharge Rx Participant: Yes New Discharge Prescriptions: New predniSONE 20 mg PO DAILY #30 tab Continue DULoxetine HCL [Cymbalta] 60 mg PO DAILY Ergocalciferol (Vitamin D2) [Vitamin D2] 50,000 unit PO TU Magnesium Oxide [Mag-Ox] 400 mg PO HS Mirabegron [Myrbetriq] 50 mg PO DAILY PRN PRN Reason: bladder leakage Montelukast [Singulair] 10 mg PO DAILY Omeprazole 40 mg PO DAILY Ranitidine HCl [Zantac] 150 mg PO HS Docusate [Colace] 100 mg PO DAILY Amiodarone [Cordarone] 200 mg PO DAILY #90 tab traZODone HCL 50 mg PO HS traMADol HCL [Ultram] 50 mg PO DAILY PRN PRN Reason: Pain Colon Health 1 tab PO DAILY Albuterol Inhaler [Ventolin Hfa Inhaler] 2 puff INHALATION RT-Q6H PRN PRN Reason: Shortness Of Breath Cyanocobalamin (Vitamin B-12) [Vitamin B-12] 1,000 mcg PO DAILY metFORMIN HCL [Glucophage] 500 mg PO DAILY Allopurinol [Zyloprim] 300 mg PO HS Furosemide [Lasix] 40 mg PO DAILY Apixaban [Eliquis] 5 mg PO BID #0 Discontinued Apixaban [Eliquis] 5 mg PO BID predniSONE 10 mg PO TID Loratadine [Claritin] 10 mg PO DAILY Discharge Medication List DULoxetine HCL [Cymbalta] 60 mg PO DAILY 02/21/15 [History] Ergocalciferol (Vitamin D2) [Vitamin D2] 50,000 unit PO TU 02/21/15 [History] Magnesium Oxide [Mag-Ox] 400 mg PO HS 02/21/15 [History] Mirabegron [Myrbetriq] 50 mg PO DAILY PRN 02/21/15 [History] Montelukast [Singulair] 10 mg PO DAILY 02/21/15 [History] Omeprazole 40 mg PO DAILY 02/21/15 [History] Docusate [Colace] 100 mg PO DAILY 09/30/17 [History] Ranitidine HCl [Zantac] 150 mg PO HS 09/30/17 [History] Amiodarone [Cordarone] 200 mg PO DAILY #90 tab 10/05/17 [Rx] Albuterol Inhaler [Ventolin Hfa Inhaler] 2 puff INHALATION RT-Q6H PRN 02/21/19 [History] Allopurinol [Zyloprim] 300 mg PO HS 02/21/19 [History] Colon Health 1 tab PO DAILY 02/21/19 [History] Cyanocobalamin (Vitamin B-12) [Vitamin B-12] 1,000 mcg PO DAILY 02/21/19 [History] Furosemide [Lasix] 40 mg PO DAILY 02/21/19 [History] metFORMIN HCL [Glucophage] 500 mg PO DAILY 02/21/19 [History] traMADol HCL [Ultram] 50 mg PO DAILY PRN 02/21/19 [History] traZODone HCL 50 mg PO HS 02/21/19 [History] Apixaban [Eliquis] 5 mg PO BID #0 03/01/19 [Rx] predniSONE 20 mg PO DAILY #30 tab 03/01/19 [Rx] Follow up Appointment(s)/Referral(s): Kamari Montanez MD [STAFF PHYSICIAN] - 03/18/19 4:30 pm [facility], [NON-STAFF] - 1 Week Florinda Flowers DO [Primary Care Provider] - 3 Days Reinaldo Carr DO [STAFF PHYSICIAN] - 1 Week Patient Instructions/Handouts: Prednisone (By mouth), Heart Failure (DC), Weakness (DC) Activity/Diet/Wound Care/Special Instructions: Resume [place] tomorrow 03/02/19
[2019-03-01 11:11] LABS: Glucose,Whole Blood 92 mg/dL (75-99)
== END 2019-03-01 12:35 | disposition home health service (06) | DRG 91 ==
LOC: EC 15:18 → 3NMEDONC 22:21 → OBSVTOIN 02-23 07:13
PROVIDERS: ADMIT Family Medicine; ATTEND Family Medicine
PROC: 009U3ZX Drainage of Spinal Canal, Percutaneous Approach, Diagnostic (ICD-10-PCS; principal; 2019-02-28)
DX: G72.0 Drug-induced myopathy (principal); I50.33 Acute on chronic diastolic (congestive) heart failure; G82.20 Paraplegia, unspecified; I45.89 Other specified conduction disorders; N39.0 Urinary tract infection, site not specified; E24.2 Drug-induced Cushing's syndrome; T38.0X5A Adverse effect of glucocorticoids and synthetic analogues, initial encounter; I11.0 Hypertensive heart disease with heart failure; E11.65 Type 2 diabetes mellitus with hyperglycemia; E78.5 Hyperlipidemia, unspecified; F32.9 Major depressive disorder, single episode, unspecified; F41.9 Anxiety disorder, unspecified; I48.0 Paroxysmal atrial fibrillation; J44.9 Chronic obstructive pulmonary disease, unspecified; K21.9 Gastro-esophageal reflux disease without esophagitis; M31.6 Other giant cell arteritis; Z79.01 Long term (current) use of anticoagulants; Z79.52 Long term (current) use of systemic steroids; Z79.84 Long term (current) use of oral hypoglycemic drugs; Z79.899 Other long term (current) drug therapy; Z80.3 Family history of malignant neoplasm of breast; Z86.718 Personal history of other venous thrombosis and embolism; Z87.442 Personal history of urinary calculi; Z90.710 Acquired absence of both cervix and uterus; Z98.1 Arthrodesis status; Z90.49 Acquired absence of other specified parts of digestive tract; Z98.42 Cataract extraction status, left eye; Z98.41 Cataract extraction status, right eye; Z53.09 Procedure and treatment not carried out because of other contraindication; M51.36 Other intervertebral disc degeneration, lumbar region; Z88.7 Allergy status to serum and vaccine
CPT/HCPCS: 36415; 62270; 70450; 71046; 80053; 81001; 82550; 82553; 82607; 82746; 82945; 83036; 83605; 83615; 83735; 83880; 84157; 84484; 85025; 85610; 85652; 85730; 86038; 86140; 87070; 87077; 87086; 87186; 87205; 88108; 89050; 93005; 93306; 93970; 96360; 96361; 99285

== ENCOUNTER → 2019-04-27 | Day surgery (SDC) | payer MEDICARE, BC ==
[2019-04-25 15:40] VITALS: BMI 38.3
[~2019-04-27] MED LIST changes: +ALPRAZolam 0.25 MG TAB PO PRN; +ALPRAZolam 0.5 MG TAB PO PRN; +ASPIRIN 325 MG TAB PO STA; +ATORVASTATIN 80 MG TAB PO STA; +IOPAMIDOL-370 125ML BTL INJ ONE; -LACTATED RINGERS 1,000 ML IV SCH; +LIDOCAINE 1% INJ 10MG/ML (20 ML MDV) ONE; +LIDOCAINE 1% INJ 10MG/ML (20 ML MDV) SQ ONE; +MIDAZOLAM 2 MG/2 ML VIAL IV ONE; +NITROGLYCERIN SL TABS 0.4 MG TAB SUBLINGUAL PRN; +RX INFO: IV CONTRAST WAS GIVEN 1 EACH MISC MISCELLANE PRN; +SODIUM CHLORIDE 0.9% 1,000 ML IV SCH; +SODIUM CHLORIDE 0.9% 1,000 ML in EMPTY BAG 1 BAG IV ONE; +fentaNYL (PF) 50 MCG/ML 2 ML AMP IV ONE; +fentaNYL (PF) 50 MCG/ML 2 ML AMP ONE
[2019-04-27 09:50] VITALS: RESP 18; TEMP 98
[2019-04-27 10:06] LABS: Glucose,Whole Blood 130 mg/dL (75-99)
[2019-04-27 10:38] LABS: Basophils % (A) 0 %; Eosinophils # (A) 0.1 k/uL (0-0.7); Eosinophils % (A) 1 %; HCT 33.1 % (34.0-46.0); HGB 10.6 gm/dL (11.4-16.0); Hypochromasia Slight; Lymphocytes # (A) 1.3 k/uL (1.0-4.8); Lymphocytes % (A) 11 %; MCH 33.8 pg (25.0-35.0); MCHC 32.2 g/dL (31.0-37.0); Macrocytosis Moderate; Mean Platelet Volume 5.6; Monocytes # (A) 0.4 k/uL (0-1.0); Monocytes % (A) 3 %; Neutrophils % (A) 85 %; Poikilocytosis Slight; RBC 3.15 m/uL (3.80-5.40); RDW 15.1 % (11.5-15.5); WBC 11.8 k/uL (3.8-10.6)
[2019-04-27 10:43] LABS: MCV 104.9 fL (80.0-100.0)
[2019-04-27 10:44] LABS: Platelet Count 261 k/uL (150-450)
[2019-04-27 10:47] LABS: Calcium 9.3 mg/dL (8.4-10.2); Potassium 3.8 mmol/L (3.5-5.1)
--- NOTE | 2019-04-27 11:07 | P.CARDCATH ---
Date of Procedure: 04/27/19 Preoperative Diagnosis: Positive stress test and symptoms of exertional shortness of breath Postoperative Diagnosis: Normal coronary arteries Procedure(s) Performed: Left heart catheterization without left ventriculography Description of Procedure: HISTORY: This is a 78-year-old female with history of hypertension and hypercholesterolemia who has been complaining of exertional shortness of breath and fatigue. A stress test was size to possible anterolateral wall ischemia. Patient is advised to have cardiac catheterization for definitive diagnosis CONSENT:I have discussed the risks, benefits and alternative therapies for the above-mentioned procedure and for both sedation/analgesia as well as necessary blood product administration, if indicated, as they pertain to this patient. The patient has indicated understanding and acceptance of the risks and procedures discussed. PROCEDURE: Patient was brought to the lab in a fasting state. Patient was given some IV sedation. The right groin is infiltrated with lidocaine and right femoral artery was entered using Seldinger technique. A 6-Wallisian catheter was left in place and selective coronary arteriography and left ventriculography was performed. Patient tolerated the procedure well. Femoral angiogram was performed and manual compression was applied for hemostasis. No immediate complications were noted and patient was transferred to [facility] in a stable condi tion Conscious Sedation: Versed 0.5mg Fentanyl 12.5 g Duration 19minutes HEMODYNAMICS: The aortic pressure is about 160/70. The left ventricle end- diastolic pressure is 20. There was no gradient across the aortic valve SELECTIVE CORONARY ARTERIOGRAPHY: LEFT MAIN: Short and divides into left anterior descending and also left circumflex immediately THE LEFT ANTERIOR DESCENDING CORONARY ARTERY: It is a good caliber vessel giving rise to several septal and diagonal branches. The LAD and branches are free of occlusive disease THE LEFT CIRCUMFLEX AND IS CORONARY ARTERY:. This is a large and dominant vessel giving rise good-sized OM branch. The circumflex. Sclerae artery and branches are free of occlusive disease THE RIGHT CORONARY ARTERY:. This is small nondominant vessel. Free of occlusive disease LEFT VENTRICULOGRAPHY:. Not performed FINAL IMPRESSION:, Normal coronary arteries. Elevated end-diastolic pressure PLAN: [Maximum medical therapy and this factor modification PROGNOSIS: Good
[2019-04-27 18:23] VITALS: BP 124/56; PULSE 66
== END | disposition home or self-care (01) ==
LOC: CATHCVL 08:43
PROVIDERS: ATTEND Internal Medicine Cardiovascular Disease
DX: R94.39 Abnormal result of other cardiovascular function study (principal); R53.83 Other fatigue; R06.02 Shortness of breath; I48.91 Unspecified atrial fibrillation; I49.5 Sick sinus syndrome; I10 Essential (primary) hypertension; E78.5 Hyperlipidemia, unspecified; E78.00 Pure hypercholesterolemia, unspecified; Z79.01 Long term (current) use of anticoagulants; Z79.84 Long term (current) use of oral hypoglycemic drugs; Z79.52 Long term (current) use of systemic steroids; Z79.899 Other long term (current) drug therapy; Z88.7 Allergy status to serum and vaccine
CPT/HCPCS: 93458; 80048; 85025; C1894; C1769 ×2; J2250; J2001; J3010; Q9967